=== PATIENT | male | born 1940 | race African-American/Black ===

== ENCOUNTER → 2017-07-15 | Outpatient (CLI) | payer MEDICARE ==
--- NOTE | 2017-07-15 17:59 | RADIOLOGY REPORT (SQ) ---
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 Yes Was the patient offered tobacco cessation counseling? Yes Was the patient engaged in shared decision making for this test? No Does the patient have signs or symptoms of Lung Cancer? No Is the patient a smoker? Yes How many packs per year? 730 How many years since quitting smoking? Not applicable Patients age: 76 COMPARISON: None. TECHNIQUE: Low Dose CT scan performed of the chest without intravenous contrast for purposes of scre ening for lung cancer. Images reviewed with lung, soft tissue and bone windows. Reconstructed coron al and sagittal MPR images reviewed. All images stored on PACS. All CT scanners at this facility use dose modulation, iterative reconstruction, and/or weight based d osing when appropriate to reduce radiation dose to as low as reasonably achievable (ALARA). [facility]: Dose Right [facility]: CareDose [facility]: Dose Right [facility]: Teradose 4D [facility]: [employer] RADIATION DOSE: CT Rad equipment meets quality standard of care and radiation dose reduction techniq ues were employed. CTDIvol: 2.1 mGy. DLP: 85 mGy-cm. mGy. . LIMITATIONS: No technical limitations. FINDINGS: LUNG NODULES: No worrisome lung nodules are present. There is bandlike scarring in the p eriphery of the right upper lobe near the major fissure, in the medial aspect of the lingula and righ t middle lobe. REMAINING LUNGS AND PLEURA: No pleural effusions or calcifications. No pneumothorax. Extensive changes of obstructive lung disease. HILAR AND MEDIASTINAL STRUCTURES: No identified masses. No abnormal nodes. HEART AND VASCULAR STRUCTURES: No aortic aneurysm. No pericardial effusion. No cardiac devices. CORONARY ARTERY CALCIFICATIONS: Mild to moderate calcifications. UPPER ABDOMEN, THYROID, BONES, OTHER SOFT TISSUES: Post left nephrectomy. IMPRESSION: BENIGN FINDINGS IN THE LUNGS. OTHER FINDINGS ABOVE. LUNGRADS: LUNGRADS: 2 BENIGN APPEARANCE OR BEHAVIOR. NODULES WITH A VERY LOW LIKELIHOOD OF BECOMING A CLINICALLY ACTIVE CANCER DUE TO SIZE OR LACK OF GROWTH. MODIFIER: NONE. RECOMMENDATION: Continue annual screening with LDCT in 12 months. COMMENT: CRITERIA: Solid nodule(s): < 6 mm; new < 4 mm. Part solid nodule(s): < 6 mm total diameter on baseline screening. Non solid nodule(s) (GGN): < 20 mm OR ? 20 and unchanged or slowly growing. Category 3 or 4 modules unchanged for ? 3 months. TECHNICAL DOCUMENTATION: JOB ID: [id number] Quality ID # [id number]: Final reports with documentation of one or more dose reduction techniques (e.g., Au tomated exposure control, adjustment of the mA and/or kV according to patient size, use of iterative reconstruction technique) 2010 [facility] Radiology Reading location - IP/workstation name: [email or web address]
== END ==
LOC: RAD 15:26
PROVIDERS: ATTEND Internal Medicine
DX: Z12.2 Encounter for screening for malignant neoplasm of respiratory organs (principal); F17.218 Nicotine dependence, cigarettes, with other nicotine-induced disorders; J44.9 Chronic obstructive pulmonary disease, unspecified
CPT/HCPCS: G0297

== ENCOUNTER 2017-08-28 12:22 | Inpatient (IN) | payer MEDICARE ==
[2017-08-28 14:54] LABS: ARTERIAL BLOOD BASE EXCESS -0.8 mmol/L; ARTERIAL BLOOD H2CO3 1.13 mmol/L (1.05-1.35); ARTERIAL BLOOD HCO3 23.5 mmol/L (20-26); ARTERIAL BLOOD O2 SATURATION 94.5 % (94-98); ARTERIAL BLOOD PCO2 37.5 mmHg (35-45); ARTERIAL BLOOD PH 7.41 (7.35-7.45); ARTERIAL BLOOD PO2 70.8 mmHg (80-100); ARTERIAL BLOOD TOTAL CO2 24.6 mmol/L (23-27)
[2017-08-28 14:55] LABS: ARTERIAL BLOOD FIO2 21%
[2017-08-28 15:09] LABS: HEMATOCRIT 40.9 % (37.9-51.0); HEMOGLOBIN 13.1 g/dL (13.5-17.0); MEAN CORPUSCULAR HEMOGLOBIN 26.9 pg (27.0-33.4); MEAN CORPUSCULAR HGB CONC 32.1 g/dL (32.0-36.0); MEAN CORPUSCULAR VOLUME 84 fl (80-97); PLATELET COUNT 128 10^3/uL (150-450); RED BLOOD COUNT 4.88 10^6/uL (4.35-5.55); RED CELL DISTRIBUTION WIDTH 15.3 % (11.5-14.0); WHITE BLOOD COUNT 5.5 10^3/uL (4.0-10.5)
[2017-08-28 15:35] LABS: ALANINE AMINOTRANSFERASE 21 U/L (21-72); ALBUMIN 3.8 g/dL (3.5-5.0); ALKALINE PHOSPHATASE 82 U/L (38-126); ANION GAP 11 (5-19); ASPARTATE AMINO TRANSFERASE 17 U/L (17-59); BILIRUBIN,DIRECT 0.3 mg/dL (0.0-0.4); BILIRUBIN,TOTAL 0.5 mg/dL (0.2-1.3); BLOOD UREA NITROGEN 20 mg/dL (7-20); CALCIUM 10.4 mg/dL (8.4-10.2); CARBON DIOXIDE 30 mmol/L (22-30); CHLORIDE 103 mmol/L (98-107); CREATINE KINASE 26 U/L (55-170); GLUCOSE 114 mg/dL (75-110); POTASSIUM 4.3 mmol/L (3.6-5.0)
[2017-08-28 15:45] LABS: CREATINE KINASE MB 0.26 ng/mL (<4.55)
[2017-08-28 15:46] LABS: TROPONIN I < 0.012 ng/mL
[2017-08-28] MEDS: NORMAL SALINE 1000 ML 1,000 ML IV PRN (16:07)
--- NOTE | 2017-08-28 16:09 | RADIOLOGY REPORT (SQ) ---
EXAM DESCRIPTION: CHEST 2 VIEWS COMPLETED DATE/TIME: 08/28/2017 3:27 pm REASON FOR STUDY: resp failure COMPARISON: 10/28/2014 EXAM PARAMETERS: NUMBER OF VIEWS: two views TECHNIQUE: Digital Frontal and Lateral radiographic views of the chest acquired. RADIATION DOSE: NA LIMITATIONS: none FINDINGS: LUNGS AND PLEURA: There is ill-defined opacification posteriorly and inferiorly on the lat eral view. No infiltrate is appreciated on the anterior view. MEDIASTINUM AND HILAR STRUCTURES: No masses or contour abnormalities. HEART AND VASCULAR STRUCTURES: Heart normal size. No evidence for failure. BONES: No acute findings. HARDWARE: None in the chest. OTHER: No other significant finding. IMPRESSION: Cannot entirely exclude a lower lobe infiltrate although this is not appreciated on the PA image. TECHNICAL DOCUMENTATION: JOB ID: [id number] [employer]- All Rights Reserved Reading location - IP/workstation name: [email or web address]
--- NOTE | 2017-08-28 17:16 | RADIOLOGY REPORT (SQ) ---
EXAM DESCRIPTION: CT CHEST WITH COMPLETED DATE/TIME: 08/28/2017 5:00 pm REASON FOR STUDY: suspect pneumonia/neoplasm COMPARISON: CT lung cancer screening 07/15/2017 CT chest 10/17/2015, 03/15/2014, 10/24/2012, 01/17/2012 Two-view chest films 08/28/2017 TECHNIQUE: CT scan of the chest performed using helical scanning technique with dynamic intravenous contrast injection. Images reviewed with lung, soft tissue and bone windows. Reconstructed coronal and sagittal MPR images reviewed. All images stored on PACS. All CT scanners at this facility use dose modulation, iterative reconstruction, and/or weight based d osing when appropriate to reduce radiation dose to as low as reasonably achievable (ALARA). [facility]: Dose Right [facility]: CareDose [facility]: Dose Right [facility]: Teradose 4D [facility]: [employer] CONTRAST TYPE AND DOSE: contrast/concentration: Isovue 370.00 mg/ml; Total Contrast Delivered: 80.0 ml; Total Saline Delivered: 53.1 ml RENAL FUNCTION: Creatinine 1.2 RADIATION DOSE: CT Rad equipment meets quality standard of care and radiation dose reduction techniq ues were employed. CTDIvol: 7.5 mGy. DLP: 292 mGy-cm. . LIMITATIONS: None. FINDINGS: LUNGS AND PLEURA: Minimal airspace disease in the posterior right lower lobe new compared to previous exams. Lungs are hyperinflated and hyperlucent from advanced obstructive lung disease. No pleural effusion. No pneumothorax. Airways are patent. HILAR AND MEDIASTINAL STRUCTURES: No identified masses or abnormal nodes. HEART AND VASCULAR STRUCTURES: No aneurysm or dissection. No central pulmonary emboli. No pericardi al effusion. Calcified coronary arteries HARDWARE: None in the chest. UPPER ABDOMEN: Post left nephrectomy. Stable 1 cm nodule right adrenal gland, unchanged from 2012 THYROID AND OTHER SOFT TISSUES: No masses. No adenopathy. BONES: No significant finding. OTHER: No other significant finding. IMPRESSION: Minimal airspace disease posterior right lower lobe. TECHNICAL DOCUMENTATION: JOB ID: [id number] Quality ID # [id number]: Final reports with documentation of one or more dose reduction techniques (e.g., Au tomated exposure control, adjustment of the mA and/or kV according to patient size, use of iterative reconstruction technique) 2010 [employer]- All Rights Reserved Reading location - IP/workstation name: [email or web address]
--- NOTE | 2017-08-28 18:03 | PDOC H&P ---
History of Present Illness Admission Date/PCP: 08/28/17 12:22 STEVE DOTY MD History of Present Illness: YELENA SANCHEZ is a 76 year old male, He came to the office today with his for evaluation of low blood pressure and hypoxemia on pulse oximetry. Patient's said the last 3 days he has not been acting himself, is coughing is not particularly engaging, in the office he would not answer questions which is out of character. The gait was very slow, he was admitted directly from the office to the hospital for further evaluation. Chest x-ray suggests pneumonia, CT chest was done there was no pneumonia it showed advanced COPDHe was initially brought in for observation after further evaluation it was found to have a slight right facial droop, intracranial event was suspected, CVA versus a space occupying lesion in the brain MRI brain was ordered it confirmed a left thalamic stroke Past Medical History Cardiac Medical History: Reports: DVT, Hypertension, Peripheral Vascular Disease , Pulmonary Embolism Pulmonary Medical History: Reports: Bronchitis, Chronic Obstructive Pulmonary Disease (COPD), Pneumonia, Respiratory Failure Malignancy Medical History: Reports: Renal (Kidney) Cancer Musculoskeltal Medical History: Reports: Arthritis Psychiatric Medical History: Reports: Depression Hematology: Denies: Anemia Past Surgical History Past Surgical History: Reports: Vascular Surgery Denies: Pacemaker Social History Smoking Status: Current Every Day Smoker Cigarettes Packs Per Day: 0.5 Number of Years Smokin Last Time Smoked: 08/27/2017 Frequency of Alcohol Use: None Hx Recreational Drug Use: No Drugs: None Hx Prescription Drug Abuse: No Family History Family History: Reviewed & Not Pertinent Parental Family History Reviewed: Yes Children Family History Reviewed: Yes Sibling(s) Family History Reviewed.: Yes Medication/Allergy Home Medications: Atorvastatin Calcium [Lipitor 20 mg Tablet] 20 mg PO QHS 08/28/17 Finasteride [Proscar] 5 mg PO DAILY 08/28/17 Metoprolol Succinate [Toprol Xl 25 mg Tab.sr] 25 mg PO DAILY 08/28/17 Valsartan/Hydrochlorothiazide [Diovan Hct 320-25 mg Tablet] 1 tab PO DAILY 08/28 Allergies/Adverse Reactions: No Known Allergies Allergy (Verified 09/13/14 06:10) Review of Systems ROS unobtainable: Other - Not answering questions except for saying he does not feel well Physical Exam Vital Signs: Temp Pulse Resp BP Pulse Ox 97.9 F 65 20 91/63 L 94 08/28/17 15:36 08/28/17 15:36 08/28/17 15:36 08/28/17 15:36 08/28/17 15:36 Intake & Output 08/27/17 08/28/17 08/29/17 06:59 06:59 06:59 Intake Total 222 Balance 222 Weight 73.5 kg General appearance: PRESENT: no acute distress, well-developed, well-nourished Head exam: PRESENT: atraumatic, normocephalic Eye exam: PRESENT: conjunctiva pink, EOMI, PERRLA Ear exam: PRESENT: normal external ear exam Mouth exam: PRESENT: moist, tongue midline Neck exam: PRESENT: full ROM Respiratory exam: PRESENT: clear to auscultation sariah Cardiovascular exam: PRESENT: RRR, +S1, +S2 Pulses: PRESENT: normal dorsalis pedis pul, +2 pedal pulses bilateral Vascular exam: PRESENT: normal capillary refill GI/Abdominal exam: PRESENT: normal bowel sounds, soft Rectal exam: PRESENT: deferred Neurological exam: PRESENT: alert, motor sensory deficit - Right facial droop Skin exam: PRESENT: dry, intact, warm Results Laboratory Results: 08/28/17 14:55 08/28/17 14:55 08/28/17 08/28/17 08/28/17 14:32 14:55 14:55 WBC 5.5 RBC 4.88 Hgb 13.1 L Hct 40.9 MCV 84 MCH 26.9 L MCHC 32.1 RDW 15.3 H Plt Count 128 L Carbonic Acid 1.13 HCO3/H2CO3 Ratio 20:1 ABG pH 7.41 ABG pCO2 37.5 ABG pO2 70.8 L ABG HCO3 23.5 ABG O2 Saturation 94.5 ABG Base Excess -0.8 FiO2 21% Sodium 144.0 Potassium 4.3 Chloride 103 Carbon Dioxide 30 Anion Gap 11 BUN 20 Creatinine 1.23 Est GFR ( Amer) > 60 Est GFR (Non-Af Amer) 58 L Glucose 114 H Calcium 10.4 H Total Bilirubin 0.5 AST 17 ALT 21 Alkaline Phosphatase 82 Total Protein 7.0 Albumin 3.8 08/28/17 08/28/17 14:55 14:55 Creatine Kinase 26 L CK-MB (CK-2) 0.26 Troponin I < 0.012 Impressions: Chest CT 08/28/17 00:00 IMPRESSION: Minimal airspace disease posterior right lower lobe. Chest X-Ray 08/28/17 14:19 IMPRESSION: Cannot entirely exclude a lower lobe infiltrate although this is not appreciated on the PA image. 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
[2017-08-28 19:32] LABS: APPEARANCE,URINE CLEAR; BILIRUBIN,URINE NEGATIVE (NEGATIVE); COLOR,URINE YELLOW; GLUCOSE, URINE NEGATIVE (NEGATIVE); KETONES,URINE NEGATIVE (NEGATIVE); LEUKOCYTE ESTERASE,URINE NEGATIVE (NEGATIVE); NITRITE,URINE NEGATIVE (NEGATIVE); PROTEIN,URINE NEGATIVE (NEGATIVE); URINE SPECIFIC GRAVITY 1.043
[2017-08-28] MEDS ORDERED: FINASTERIDE 5 MG TABLET PO ONE (21:00)
[2017-08-28] MEDS: ATORVASTATIN CALCIUM 20 MG TABLET PO SCH (21:33)
[2017-08-28] MEDS: APIXABAN 2.5 MG TABLET PO SCH (21:33)
[2017-08-28 23:12] LABS: TROPONIN I < 0.012 ng/mL
--- NOTE | 2017-08-28 23:22 | EKG REPORT ---
SEVERITY:- ABNORMAL ECG - SINUS RHYTHM FIRST DEGREE AV BLOCK RBBB AND LPFB : Confirmed by: Breonna Villavicencio 28-Aug-2017 23:21:57
[2017-08-29] MEDS: NORMAL SALINE 1000 ML 1,000 ML IV PRN ×2 (00:52→10:15)
[2017-08-29 08:26] LABS: CREATINE KINASE MB 0.39 ng/mL (<4.55)
[2017-08-29 08:29] LABS: TROPONIN I < 0.012 ng/mL
[2017-08-29] MEDS: FINASTERIDE 5 MG TABLET PO SCH (09:33)
[2017-08-29] MEDS: APIXABAN 2.5 MG TABLET PO SCH ×2 (09:34→23:29)
--- NOTE | 2017-08-29 21:46 | RADIOLOGY REPORT (SQ) ---
EXAM DESCRIPTION: MRI HEAD COMBO COMPLETED DATE/TIME: 08/29/2017 8:44 pm REASON FOR STUDY: ? brain mass ? CVA COMPARISON: CT from 08/21/2017. TECHNIQUE: Multiplanar imaging includes noncontrasted T1, T2, FLAIR, diffusion with ADC map and post gadolinium contrast T1 sequences. Images stored on PACS. CONTRAST TYPE AND DOSE: 15 mL Multihance. RENAL FUNCTION: GFR 57 LIMITATIONS: None. FINDINGS: ANATOMY: No anomalies. Normal vascular flow voids. Pituitary fossa normal. CSF SPACES: Slightly prominent, related to parenchymal atrophy. No extra-axial mass, fluid or hemorr linda evident. CEREBRUM: Best demonstrated on FLAIR and T2 sequences is moderate -marked bilateral patchy deep periv entricular white matter signal. Consistent with small vessel vasculopathy. No hemorrhage or mass or shift. POSTERIOR FOSSA: No signal alteration. No hemorrhage. No edema, masses, or mass effect. Internal venecia tory canals, cerebellopontine angles, mastoids normal. No enhancing lesions. No abnormal enhancement post contrast. DIFFUSION IMAGING: Restricted diffusion in the left thalamus. Consistent with recent infarct. Poten tial very subtle dorsal pontine 2nd area of restricted diffusion just to the left of midline. ORBITS: No masses. Globes normal. PARANASAL SINUSES: Patchy mucosal thickening left frontal and ethmoid air cells. Mucosal thickening and fluid in the sphenoid sinuses. OTHER: No other significant finding. IMPRESSION: 1. Small acute left thalamic and dorsal pontine infarcts. 2. Acute on chronic paranasa l sinus disease. 3. Otherwise, chronic changes of atrophy and small vessel disease. EVIDENCE OF ACUTE STROKE: YES. LEFT THALAMIC AND PONTINE ARTERIES. TECHNICAL DOCUMENTATION: JOB ID: [id number] [employer]- All Rights Reserved Reading location - IP/workstation name: [employer] [email or web address]
[2017-08-29 22:30] LABS: INTERNATIONAL RATION (INR) 1.03
[2017-08-29 22:31] LABS: PARTIAL THROMBOPLASTIN TIME 23.3 SEC (23.5-35.8)
[2017-08-29 23:21] LABS: APPEARANCE,URINE SLIGHTLY-CLOUDY; BILIRUBIN,URINE NEGATIVE (NEGATIVE); COLOR,URINE YELLOW; GLUCOSE, URINE NEGATIVE (NEGATIVE); KETONES,URINE NEGATIVE (NEGATIVE); LEUKOCYTE ESTERASE,URINE NEGATIVE (NEGATIVE); NITRITE,URINE NEGATIVE (NEGATIVE); PROTEIN,URINE NEGATIVE (NEGATIVE); URINE SPECIFIC GRAVITY 1.031
[2017-08-29] MEDS: ASPIRIN/DIPYRIDAMOLE 25-200 MG 1 CAP.SR CPMP.12HR PO SCH (23:28)
--- NOTE | 2017-08-29 23:30 | EKG REPORT ---
SEVERITY:- ABNORMAL ECG - SINUS RHYTHM FIRST DEGREE AV BLOCK RIGHT BUNDLE BRANCH BLOCK : Confirmed by: Breonna Villavicencio 29-Aug-2017 23:30:18
[2017-08-29] MEDS: ATORVASTATIN CALCIUM 20 MG TABLET PO SCH (23:31)
[2017-08-29] MEDS: ATORVASTATIN CALCIUM 80 MG TABLET PO SCH (23:31)
[2017-08-30] MEDS: NORMAL SALINE 1000 ML 1,000 ML IV PRN ×2 (02:30→12:25)
[2017-08-30 04:35] LABS: ABSOLUTE EOSINOPHILS # (AUTO) 0.2 10^3/uL (0.0-0.6); ABSOLUTE LYMPHOCYTES (AUTO) 1.1 10^3/uL (0.5-4.7); ABSOLUTE MONOCYTES (AUTO) 0.7 10^3/uL (0.1-1.4); ABSOLUTE NEUT (AUTO) 3.6 10^3/uL (1.7-8.2); BASOPHILS % (AUTO) 0.5 % (0-2); EOSINOPHILS % (AUTO) 4.4 % (0-6); HEMATOCRIT 36.1 % (37.9-51.0); HEMOGLOBIN 11.6 g/dL (13.5-17.0); LYMPHOCYTES % (AUTO) 19.8 % (13-45); MEAN CORPUSCULAR HEMOGLOBIN 26.8 pg (27.0-33.4); MEAN CORPUSCULAR HGB CONC 32.3 g/dL (32.0-36.0); MEAN CORPUSCULAR VOLUME 83 fl (80-97); MONOCYTES % (AUTO) 11.9 % (3-13); PLATELET COUNT 111 10^3/uL (150-450); RED BLOOD COUNT 4.35 10^6/uL (4.35-5.55); RED CELL DISTRIBUTION WIDTH 15.3 % (11.5-14.0); SEGMENTED NEUTROPHILS % (AUTO) 63.4 % (42-78); TOTAL CELLS COUNTED % (AUTO) 100 %; WHITE BLOOD COUNT 5.7 10^3/uL (4.0-10.5)
[2017-08-30 04:52] LABS: ALANINE AMINOTRANSFERASE 19 U/L (21-72); ALBUMIN 2.8 g/dL (3.5-5.0); ALKALINE PHOSPHATASE 68 U/L (38-126); ANION GAP 11 (5-19); ASPARTATE AMINO TRANSFERASE 16 U/L (17-59); BILIRUBIN,DIRECT 0.3 mg/dL (0.0-0.4); BILIRUBIN,TOTAL 0.4 mg/dL (0.2-1.3); BLOOD UREA NITROGEN 15 mg/dL (7-20); CALCIUM 9.2 mg/dL (8.4-10.2); CARBON DIOXIDE 23 mmol/L (22-30); CHLORIDE 111 mmol/L (98-107); CHOLESTEROL 62.15 mg/dL (0-200); CREATINE KINASE 34 U/L (55-170); GLUCOSE 93 mg/dL (75-110); POTASSIUM 3.7 mmol/L (3.6-5.0); SODIUM 144.5 mmol/L (137-145); TOTAL PROTEIN 5.6 g/dL (6.3-8.2); TRIGLYCERIDES 61 mg/dL (<150)
[2017-08-30 05:03] LABS: DIRECT LDL 31 mg/dL (<100)
[2017-08-30] MEDS: APIXABAN 2.5 MG TABLET PO SCH ×2 (09:30→21:58)
[2017-08-30] MEDS: FINASTERIDE 5 MG TABLET PO SCH (09:30)
[2017-08-30] MEDS: ASPIRIN/DIPYRIDAMOLE 25-200 MG 1 CAP.SR CPMP.12HR PO SCH ×2 (09:30→21:57)
--- NOTE | 2017-08-30 11:51 | RADIOLOGY REPORT (SQ) ---
EXAM DESCRIPTION: CAROTID DOPPLER COMPLETED DATE/TIME: 08/30/2017 11:38 am REASON FOR STUDY: cva I10 ESSENTIAL (PRIMARY) HYPERTENSION I63.011 CEREBRAL INFARCTION DUE TO THRO MBOSIS OF R MIKB AR I63.02 CEREBRAL INFARCTION DUE TO THROMBOSIS OF BASILAR CELINE COMPARISON: MRI brain 08/29/2017 TECHNIQUE: Grayscale ultrasound, Doppler velocity and spectra, and color Doppler images acquired of the extra-cranial carotid and vertebral arteries. Images stored on PACS. LIMITATIONS: None. FINDINGS: RIGHT CAROTID CCA Velocities: Within normal limits. ICA Velocities Peak systolic 0.59 m/s. End diastolic 0.14 m/s. Proximal ICA/CCA peak systolic ratio 0.9. Spectra normal. No significant plaque. LEFT CAROTID CCA Velocities: Within normal limits. ICA Velocities Peak systolic 0.47 m/s. End diastolic 0.13 m/s. Proximal ICA/CCA peak systolic ratio 1.3. Spectra normal. No significant plaque. VERTEBRAL ARTERIES: Antegrade flow. Normal waveforms. SUBCLAVIAN ARTERIES: Not evaluated OTHER: No other significant finding. IMPRESSION: NO HEMODYNAMICALLY SIGNIFICANT STENOSIS. COMMENT: Quality ID #[id number]: Velocity criteria are extrapolated from the diameter data as defined by t he Society of Radiologists in Ultrasound Consensus Conference. Radiology 2003: 229; 340-346. TECHNICAL DOCUMENTATION: JOB ID: [id number] [employer]- All Rights Reserved Reading location - IP/workstation name: [facility]
--- NOTE | 2017-08-30 17:17 | PDOC PROGRESS REPORT ---
Subjective Progress Note for:: 08/30/17 Subjective:: Patient was seen by the bedside, family in the room, he has left thalamic stroke , he looks better today compared to yesterday. Reason For Visit: LEFT THALAMIC CVA Physical Exam Vital Signs: Temp Pulse Resp BP Pulse Ox 97.8 F 72 18 116/79 100 08/30/17 16:03 08/30/17 16:03 08/30/17 16:03 08/30/17 16:03 08/30/17 16:03 Intake & Output 08/29/17 08/30/17 08/31/17 06:59 06:59 06:59 Intake Total 2242 1904 Output Total 200 200 Balance 2042 1704 Weight 72.8 kg 72.6 kg General appearance: PRESENT: no acute distress Eye exam: PRESENT: PERRLA Respiratory exam: PRESENT: clear to auscultation sariah Cardiovascular exam: PRESENT: +S1, +S2 GI/Abdominal exam: PRESENT: soft Neurological exam: PRESENT: alert, CN II-XII grossly intact Results Laboratory Results: 08/30/17 04:16 08/30/17 04:16 08/29/17 08/30/17 08/30/17 23:00 04:16 04:16 WBC 5.7 RBC 4.35 Hgb 11.6 L Hct 36.1 L MCV 83 MCH 26.8 L MCHC 32.3 RDW 15.3 H Plt Count 111 L Seg Neutrophils % 63.4 Lymphocytes % 19.8 Monocytes % 11.9 Eosinophils % 4.4 Basophils % 0.5 Absolute Neutrophils 3.6 Absolute Lymphocytes 1.1 Absolute Monocytes 0.7 Absolute Eosinophils 0.2 Absolute Basophils 0.0 Sodium 144.5 Potassium 3.7 Chloride 111 H Carbon Dioxide 23 Anion Gap 11 BUN 15 Creatinine 1.00 Est GFR ( Amer) > 60 Est GFR (Non-Af Amer) > 60 Glucose 93 Calcium 9.2 Total Bilirubin 0.4 AST 16 L ALT 19 L Alkaline Phosphatase 68 Total Protein 5.6 L Albumin 2.8 L Triglycerides 61 Cholesterol 62.15 LDL Cholesterol Direct 31 VLDL Cholesterol 12.0 HDL Cholesterol 21 L Urine Color YELLOW Urine Appearance SLIGHTLY-CLOUDY Urine pH 5.0 Ur Specific [place] 1.031 Urine Protein NEGATIVE Urine Glucose (UA) NEGATIVE Urine Ketones NEGATIVE Urine Blood NEGATIVE Urine Nitrite NEGATIVE Ur Leukocyte Esterase NEGATIVE Urine WBC (Auto) 1 Urine RBC (Auto) 0 08/28/17 18:02 Clean Catch Midstream Urine Culture - Final Citrobacter Koseri 08/28/17 08/28/17 08/28/17 14:55 14:55 22:25 Creatine Kinase 26 L 23 L CK-MB (CK-2) 0.26 Troponin I < 0.012 08/28/17 08/29/17 08/29/17 22:25 06:54 06:54 Creatine Kinase 25 L CK-MB (CK-2) 0.30 0.39 Troponin I < 0.012 < 0.012 08/29/17 08/29/17 08/30/17 22:09 22:09 04:16 Creatine Kinase 38 L 34 L CK-MB (CK-2) Troponin I < 0.012 08/30/17 08/30/17 08/30/17 04:16 10:29 10:29 Creatine Kinase 36 L CK-MB (CK-2) Troponin I < 0.012 < 0.012 Impressions: Chest CT 08/28/17 00:00 IMPRESSION: Minimal airspace disease posterior right lower lobe. Chest X-Ray 08/28/17 14:19 IMPRESSION: Cannot entirely exclude a lower lobe infiltrate although this is not appreciated on the PA image. Head MRI 08/29/17 00:00 IMPRESSION: 1. Small acute left thalamic and dorsal pontine infarcts. 2. Acute on chronic paranasal sinus disease. 3. Otherwise, chronic changes of atrophy and small vessel disease. EVIDENCE OF ACUTE STROKE: YES. LEFT THALAMIC AND PONTINE ARTERIES. Carotid Doppler Study 08/30/17 00:00 IMPRESSION: NO HEMODYNAMICALLY SIGNIFICANT STENOSIS. 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
--- NOTE | 2017-08-30 20:11 | XCELERA REPORT ---
[address] [address] Transthoracic Echocardiogram Report Name: YELENA SANCHEZ Age: 77 yrs Gender: Male : 1940 Patient Status: Inpatient Patient Location: [address] [place] [address] Study Date: 08/30/2017 09:47 AM Height: 67 in Weight: 160 lb BSA: 1.8 m2 Procedure: A complete two-dimensional transthoracic echocardiogram was performed (2D, M-mode, spectral and color flow Doppler). The study was technically adequate with some images being suboptimal in quality. Reason For Study: cva Ordering Physician: STEVE DOTY Performed By: Michelle Moraes Interpretation Summary Left ventricular systolic function is low normal. There is borderline concentric left ventricular hypertrophy. The left ventricle is grossly normal size. Doppler measurements suggest pseudonormalized left ventricular relaxation, which is associated with grade II/IV or mild to moderate diastolic dysfunction Wall motion cannot be accurately commented on, but no definite regional wall motion abnormalities noted. The right ventricular systolic function is normal. The right ventricle is borderline dilated. The right atrium is normal in size The left atrial size is normal. There is a trace amount of mitral regurgitation There is no mitral valve stenosis. No aortic regurgitation is present. There is no aortic valve stenosis No tricuspid regurgitation. There is no tricuspid stenosis. The aortic root is not well visualized. The inferior vena cava was not well visualized There is no pericardial effusion. No definite cardiac source of CVA/TIA noted on this particular trans- thoracic study. Consider RUBINA if clinically indicated. May consider mobile cardiac telemetry monitoring (MCT) for ruling out transient AFIB. MMode/2D Measurements & Calculations RVDd: 3.1 cm LVIDd: 4.0 cm FS: 38.1 % Ao root diam: 3.5 cm IVSd: 0.88 cm LVIDs: 2.5 cm EDV(Teich): 70.5 ml LVPWd: 0.88 cm ESV(Teich): 21.9 ml Ao root area: 9.7 cm2 EF(Teich): 68.9 % LA dimension: 3.0 cm Doppler Measurements & Calculations MV E max lucy: MV P1/2t max lucy: Ao V2 max: LV V1 max P.8 cm/sec 89.3 cm/sec 143.6 cm/sec 4.3 mmHg MV A max lucy: MV P1/2t: 61.9 msec Ao max PG: LV V1 max: 72.1 cm/sec 8.2 mmHg 103.2 cm/sec MV E/A: 1.2 MVA(P1/2t): 3.6 cm2 MV dec slope: 423.0 cm/sec2 MV dec time: 0.21 sec PA V2 max: 62.4 cm/sec PA max P.6 mmHg Left Ventricle The left ventricle is grossly normal size. There is borderline concentric left ventricular hypertrophy. Left ventricular systolic function is low normal. Doppler measurements suggest pseudonormalized left ventricular relaxation, which is associated with grade II/IV or mild to moderate diastolic dysfunction. Wall motion cannot be accurately commented on, but no definite regional wall motion abnormalities noted. Right Ventricle The right ventricle is borderline dilated. There is normal right ventricular wall thickness. The right ventricular systolic function is normal. Atria The right atrium is normal in size. The left atrial size is normal. Interarterial septum not well visualized and not well dopplered. Cannot comment on ASD/PFO presence. Mitral Valve There is mild mitral leaflet calcification. There is no mitral valve stenosis. There is a trace amount of mitral regurgitation. Aortic Valve The aortic valve is not well visualized secondary to technical limitations. There is no aortic valve stenosis. No aortic regurgitation is present. Tricuspid Valve The tricuspid valve is not well visualized, but is grossly normal. There is no tricuspid stenosis. No tricuspid regurgitation. Pulmonic Valve The pulmonic valve is not well visualized. Great Vessels The aortic root is not well visualized. The inferior vena cava was not well visualized. Effusions There is no pericardial effusion. Incidental Findings No definite cardiac source of CVA/TIA noted on this particular trans- thoracic study. Consider RUBINA if clinically indicated. May consider mobile cardiac telemetry monitoring (MCT) for ruling out transient AFIB. : STEVE DOTY > Breonna Villavicencio
[2017-08-30] MEDS: ATORVASTATIN CALCIUM 80 MG TABLET PO SCH (21:58)
[2017-08-30] MEDS: ATORVASTATIN CALCIUM 20 MG TABLET PO SCH (21:58)
[2017-08-31 05:39] LABS: ABSOLUTE EOSINOPHILS # (AUTO) 0.3 10^3/uL (0.0-0.6); ABSOLUTE LYMPHOCYTES (AUTO) 1.1 10^3/uL (0.5-4.7); ABSOLUTE MONOCYTES (AUTO) 0.5 10^3/uL (0.1-1.4); ABSOLUTE NEUT (AUTO) 3.5 10^3/uL (1.7-8.2); BASOPHILS % (AUTO) 0.7 % (0-2); EOSINOPHILS % (AUTO) 5.6 % (0-6); HEMATOCRIT 34.4 % (37.9-51.0); HEMOGLOBIN 11.2 g/dL (13.5-17.0); MEAN CORPUSCULAR HGB CONC 32.7 g/dL (32.0-36.0); MEAN CORPUSCULAR VOLUME 83 fl (80-97); PLATELET COUNT 119 10^3/uL (150-450); RED BLOOD COUNT 4.16 10^6/uL (4.35-5.55); RED CELL DISTRIBUTION WIDTH 15.4 % (11.5-14.0); SEGMENTED NEUTROPHILS % (AUTO) 63.7 % (42-78); TOTAL CELLS COUNTED % (AUTO) 100 %; WHITE BLOOD COUNT 5.4 10^3/uL (4.0-10.5)
[2017-08-31 06:05] LABS: ALANINE AMINOTRANSFERASE 23 U/L (21-72); ALBUMIN 2.6 g/dL (3.5-5.0); ALKALINE PHOSPHATASE 64 U/L (38-126); ANION GAP 10 (5-19); ASPARTATE AMINO TRANSFERASE 15 U/L (17-59); BILIRUBIN,DIRECT 0.2 mg/dL (0.0-0.4); BILIRUBIN,TOTAL 0.2 mg/dL (0.2-1.3); BLOOD UREA NITROGEN 16 mg/dL (7-20); CALCIUM 9.3 mg/dL (8.4-10.2); CARBON DIOXIDE 24 mmol/L (22-30); CHLORIDE 111 mmol/L (98-107); GLUCOSE 105 mg/dL (75-110); POTASSIUM 3.9 mmol/L (3.6-5.0); SODIUM 145.3 mmol/L (137-145); TOTAL PROTEIN 5.3 g/dL (6.3-8.2)
[2017-08-31] MEDS: APIXABAN 2.5 MG TABLET PO SCH ×2 (10:07→21:34)
[2017-08-31] MEDS: FINASTERIDE 5 MG TABLET PO SCH (10:07)
[2017-08-31] MEDS: ASPIRIN/DIPYRIDAMOLE 25-200 MG 1 CAP.SR CPMP.12HR PO SCH ×2 (10:07→21:33)
[2017-08-31] MEDS ORDERED: ACETAMINOPHEN 325 MG TABLET PO PRN (11:35)
[2017-08-31] MEDS: LEVOFLOXACIN 750 MG TABLET PO SCH (13:50)
--- NOTE | 2017-08-31 15:53 | PDOC PROGRESS REPORT ---
Subjective Progress Note for:: 08/31/17 Subjective:: Family at bedside. he denied any chest pain or difficulty with breathing. Thee is noted coughing and chest congestion. Difficulty with expectoration. No nausea , vomiting or abdominal pain. Reason For Visit: LEFT THALAMIC CVA Physical Exam Vital Signs: Temp Pulse Resp BP Pulse Ox 97.7 F 70 18 131/73 H 100 08/31/17 11:22 08/31/17 12:00 08/31/17 12:00 08/31/17 12:00 08/31/17 12:00 Intake & Output 08/30/17 08/31/17 09/01/17 06:59 06:59 06:59 Intake Total 1904 1148 350 Output Total 200 700 300 Balance 1704 448 50 Weight 72.6 kg 74.1 kg General appearance: PRESENT: no acute distress, well-developed, well-nourished Head exam: PRESENT: atraumatic, normocephalic Teeth exam: PRESENT: poor dentation Throat exam: ABSENT: post pharyngeal erythema, tonsillar erythema, tonsillar exudate, tonsillogmegaly, other Respiratory exam: PRESENT: clear to auscultation sariah, decreased breath sounds - at lung bases Cardiovascular exam: PRESENT: RRR. ABSENT: diastolic murmur, rubs, systolic murmur Vascular exam: PRESENT: normal capillary refill. ABSENT: pallor GI/Abdominal exam: PRESENT: normal bowel sounds, soft Extremities exam: ABSENT: pedal edema Musculoskeletal exam: PRESENT: deformity - multiple joints with features of arthritis Neurological exam: PRESENT: alert, awake, oriented to person, oriented to place , oriented to time, oriented to situation, CN II-XII grossly intact. ABSENT: motor sensory deficit Skin exam: PRESENT: dry, warm Results Laboratory Results: 08/31/17 05:00 08/31/17 05:00 08/31/17 08/31/17 05:00 05:00 WBC 5.4 RBC 4.16 L Hgb 11.2 L Hct 34.4 L MCV 83 MCH 27.0 MCHC 32.7 RDW 15.4 H Plt Count 119 L Seg Neutrophils % 63.7 Lymphocytes % 20.0 Monocytes % 10.0 Eosinophils % 5.6 Basophils % 0.7 Absolute Neutrophils 3.5 Absolute Lymphocytes 1.1 Absolute Monocytes 0.5 Absolute Eosinophils 0.3 Absolute Basophils 0.0 Sodium 145.3 H Potassium 3.9 Chloride 111 H Carbon Dioxide 24 Anion Gap 10 BUN 16 Creatinine 1.07 Est GFR ( Amer) > 60 Est GFR (Non-Af Amer) > 60 Glucose 105 Calcium 9.3 Total Bilirubin 0.2 AST 15 L ALT 23 Alkaline Phosphatase 64 Total Protein 5.3 L Albumin 2.6 L 08/28/17 08/28/17 08/28/17 14:55 14:55 22:25 Creatine Kinase 26 L 23 L CK-MB (CK-2) 0.26 Troponin I < 0.012 08/28/17 08/29/17 08/29/17 22:25 06:54 06:54 Creatine Kinase 25 L CK-MB (CK-2) 0.30 0.39 Troponin I < 0.012 < 0.012 08/29/17 08/29/17 08/30/17 22:09 22:09 04:16 Creatine Kinase 38 L 34 L CK-MB (CK-2) Troponin I < 0.012 08/30/17 08/30/17 08/30/17 04:16 10:29 10:29 Creatine Kinase 36 L CK-MB (CK-2) Troponin I < 0.012 < 0.012 Impressions: Chest CT 08/28/17 00:00 IMPRESSION: Minimal airspace disease posterior right lower lobe. Chest X-Ray 08/28/17 14:19 IMPRESSION: Cannot entirely exclude a lower lobe infiltrate although this is not appreciated on the PA image. Head MRI 08/29/17 00:00 IMPRESSION: 1. Small acute left thalamic and dorsal pontine infarcts. 2. Acute on chronic paranasal sinus disease. 3. Otherwise, chronic changes of atrophy and small vessel disease. EVIDENCE OF ACUTE STROKE: YES. LEFT THALAMIC AND PONTINE ARTERIES. Carotid Doppler Study 08/30/17 00:00 IMPRESSION: NO HEMODYNAMICALLY SIGNIFICANT STENOSIS. 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 Request PT service for mobilization. (2) Infection due to Citrobacter Is this a current diagnosis for this admission?: Yes Plan: Continue on IV Levofloxacin coverage. (3) Gram-positive cocci in clusters Is this a current diagnosis for this admission?: Yes Plan: Continue on IV Levofloxacin coverage. Follow up on blood culture findings regarding organism identification and sensitivity. (4) Chronic obstructive pulmonary disease Qualifiers: COPD type: unspecified COPD Qualified Code(s): J44.9 - Chronic obstructive pulmonary disease, unspecified Is this a current diagnosis for this admission?: Yes Plan: Maintain on all current medication management. (5) Peripheral vascular disease Is this a current diagnosis for this admission?: Yes Plan: Continue current medication management. - Time Time Spent with patient: 25-34 minutes Medications reviewed and adjusted accordingly: Yes Anticipated discharge: Home with Homehealth Within: Other - Inpatient Certification Based on my medical assessment, after consideration of the patient's comorbidities, presenting symptoms, or acuity I expect that the services needed warrant INPATIENT care.: Yes I certify that my determination is in accordance with my understanding of Medicare's requirements for reasonable and necessary INPATIENT services [42 CFR 412.3e].: Yes Medical Necessity: Need Close Monitoring Due to Risk of Patient Decompensation, Need For Continuous Telemetry Monitoring, Risk of Complication if Not Cared For in Hospital Post 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
[2017-08-31] MEDS: ATORVASTATIN CALCIUM 80 MG TABLET PO SCH (21:33)
[2017-08-31] MEDS: ATORVASTATIN CALCIUM 20 MG TABLET PO SCH (21:34)
[2017-09-01 04:44] LABS: ABSOLUTE EOSINOPHILS # (AUTO) 0.3 10^3/uL (0.0-0.6); ABSOLUTE LYMPHOCYTES (AUTO) 1.1 10^3/uL (0.5-4.7); ABSOLUTE MONOCYTES (AUTO) 0.6 10^3/uL (0.1-1.4); ABSOLUTE NEUT (AUTO) 3.7 10^3/uL (1.7-8.2); BASOPHILS % (AUTO) 0.4 % (0-2); EOSINOPHILS % (AUTO) 4.6 % (0-6); HEMATOCRIT 33.7 % (37.9-51.0); LYMPHOCYTES % (AUTO) 18.8 % (13-45); MEAN CORPUSCULAR HEMOGLOBIN 26.8 pg (27.0-33.4); MEAN CORPUSCULAR HGB CONC 32.5 g/dL (32.0-36.0); MEAN CORPUSCULAR VOLUME 82 fl (80-97); MONOCYTES % (AUTO) 10.3 % (3-13); PLATELET COUNT 100 10^3/uL (150-450); RED BLOOD COUNT 4.09 10^6/uL (4.35-5.55); RED CELL DISTRIBUTION WIDTH 15.7 % (11.5-14.0); SEGMENTED NEUTROPHILS % (AUTO) 65.9 % (42-78); TOTAL CELLS COUNTED % (AUTO) 100 %; WHITE BLOOD COUNT 5.6 10^3/uL (4.0-10.5)
[2017-09-01 05:04] LABS: ALANINE AMINOTRANSFERASE 21 U/L (21-72); ALBUMIN 2.7 g/dL (3.5-5.0); ALKALINE PHOSPHATASE 60 U/L (38-126); ANION GAP 8 (5-19); ASPARTATE AMINO TRANSFERASE 15 U/L (17-59); BILIRUBIN,DIRECT 0.2 mg/dL (0.0-0.4); BILIRUBIN,TOTAL 0.3 mg/dL (0.2-1.3); BLOOD UREA NITROGEN 17 mg/dL (7-20); CALCIUM 9.2 mg/dL (8.4-10.2); CARBON DIOXIDE 23 mmol/L (22-30); CHLORIDE 111 mmol/L (98-107); GLUCOSE 93 mg/dL (75-110); POTASSIUM 3.8 mmol/L (3.6-5.0); SODIUM 142.4 mmol/L (137-145); TOTAL PROTEIN 5.4 g/dL (6.3-8.2)
[2017-09-01] MEDS: LEVOFLOXACIN 750 MG TABLET PO SCH (09:54)
[2017-09-01] MEDS: FINASTERIDE 5 MG TABLET PO SCH (09:54)
[2017-09-01] MEDS: APIXABAN 2.5 MG TABLET PO SCH ×2 (09:55→21:52)
[2017-09-01] MEDS: ASPIRIN/DIPYRIDAMOLE 25-200 MG 1 CAP.SR CPMP.12HR PO SCH ×2 (09:55→21:52)
--- NOTE | 2017-09-01 15:35 | PDOC PROGRESS REPORT ---
Subjective Progress Note for:: 09/01/17 Subjective:: Patient denied any chest pain or difficulty with breathing. No very compliant with Flutter and Incentive spirometry usage. Less coughing without expectoration. No nausea, vomiting or abdominal pain. Reason For Visit: LEFT THALAMIC CVA Physical Exam Vital Signs: Temp Pulse Resp BP Pulse Ox 98.0 F 77 16 125/76 100 09/01/17 11:07 09/01/17 11:07 09/01/17 11:07 09/01/17 11:07 09/01/17 11:07 Intake & Output 08/31/17 09/01/17 09/02/17 06:59 06:59 06:59 Intake Total 1148 1065 260 Output Total 700 750 300 Balance 448 315 -40 Weight 74.1 kg 75.7 kg Physical Exam: General appearance: PRESENT: no acute distress, well-developed, well-nourished Head exam: PRESENT: atraumatic, normocephalic Teeth exam: PRESENT: poor dentation Respiratory exam: PRESENT: clear to auscultation sariah, decreased breath sounds - at lung bases Cardiovascular exam: PRESENT: RRR. ABSENT: diastolic murmur, rubs, systolic murmur GI/Abdominal exam: PRESENT: normal bowel sounds, soft Extremities exam: ABSENT: pedal edema Musculoskeletal exam: PRESENT: deformity - multiple joints with features of arthritis Neurological exam: PRESENT: alert, awake, oriented to person, oriented to place , oriented to time, oriented to situation, CN II-XII grossly intact. ABSENT: motor sensory deficit Skin exam: PRESENT: dry, warm Results Laboratory Results: 09/01/17 04:13 09/01/17 04:13 09/01/17 09/01/17 04:13 04:13 WBC 5.6 RBC 4.09 L Hgb 11.0 L Hct 33.7 L MCV 82 MCH 26.8 L MCHC 32.5 RDW 15.7 H Plt Count 100 L Seg Neutrophils % 65.9 Lymphocytes % 18.8 Monocytes % 10.3 Eosinophils % 4.6 Basophils % 0.4 Absolute Neutrophils 3.7 Absolute Lymphocytes 1.1 Absolute Monocytes 0.6 Absolute Eosinophils 0.3 Absolute Basophils 0.0 Sodium 142.4 Potassium 3.8 Chloride 111 H Carbon Dioxide 23 Anion Gap 8 BUN 17 Creatinine 0.90 Est GFR ( Amer) > 60 Est GFR (Non-Af Amer) > 60 Glucose 93 Calcium 9.2 Total Bilirubin 0.3 AST 15 L ALT 21 Alkaline Phosphatase 60 Total Protein 5.4 L Albumin 2.7 L 08/28/17 08/28/17 08/28/17 14:55 14:55 22:25 Creatine Kinase 26 L 23 L CK-MB (CK-2) 0.26 Troponin I < 0.012 08/28/17 08/29/17 08/29/17 22:25 06:54 06:54 Creatine Kinase 25 L CK-MB (CK-2) 0.30 0.39 Troponin I < 0.012 < 0.012 08/29/17 08/29/17 08/30/17 22:09 22:09 04:16 Creatine Kinase 38 L 34 L CK-MB (CK-2) Troponin I < 0.012 08/30/17 08/30/17 08/30/17 04:16 10:29 10:29 Creatine Kinase 36 L CK-MB (CK-2) Troponin I < 0.012 < 0.012 Impressions: Chest CT 08/28/17 00:00 IMPRESSION: Minimal airspace disease posterior right lower lobe. Chest X-Ray 08/28/17 14:19 IMPRESSION: Cannot entirely exclude a lower lobe infiltrate although this is not appreciated on the PA image. Head MRI 08/29/17 00:00 IMPRESSION: 1. Small acute left thalamic and dorsal pontine infarcts. 2. Acute on chronic paranasal sinus disease. 3. Otherwise, chronic changes of atrophy and small vessel disease. EVIDENCE OF ACUTE STROKE: YES. LEFT THALAMIC AND PONTINE ARTERIES. Carotid Doppler Study 08/30/17 00:00 IMPRESSION: NO HEMODYNAMICALLY SIGNIFICANT STENOSIS. 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 Is this a current diagnosis for this admission?: Yes (2) Infection due to Citrobacter Is this a current diagnosis for this admission?: Yes (3) Gram-positive cocci in clusters Is this a current diagnosis for this admission?: Yes (4) Chronic obstructive pulmonary disease Qualifiers: COPD type: unspecified COPD Qualified Code(s): J44.9 - Chronic obstructive pulmonary disease, unspecified Is this a current diagnosis for this admission?: Yes (5) Peripheral vascular disease Is this a current diagnosis for this admission?: Yes - Time Time Spent with patient: 25-34 minutes Medications reviewed and adjusted accordingly: Yes Anticipated discharge: Home with Homehealth Within: Other - Inpatient Certification Based on my medical assessment, after consideration of the patient's comorbidities, presenting symptoms, or acuity I expect that the services needed warrant INPATIENT care.: Yes I certify that my determination is in accordance with my understanding of Medicare's requirements for reasonable and necessary INPATIENT services [42 CFR 412.3e].: Yes Medical Necessity: Need Close Monitoring Due to Risk of Patient Decompensation, Need For Continuous Telemetry Monitoring, Risk of Complication if Not Cared For in Hospital Post Hospital Care: D/C 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 I encouraged usage of flutter and incentive spirometry.
[2017-09-01] MEDS: ATORVASTATIN CALCIUM 20 MG TABLET PO SCH (21:52)
[2017-09-01] MEDS: ATORVASTATIN CALCIUM 80 MG TABLET PO SCH (21:52)
[2017-09-02] MEDS: APIXABAN 2.5 MG TABLET PO SCH ×2 (09:59→21:48)
[2017-09-02] MEDS: FINASTERIDE 5 MG TABLET PO SCH (09:59)
[2017-09-02] MEDS: ASPIRIN/DIPYRIDAMOLE 25-200 MG 1 CAP.SR CPMP.12HR PO SCH ×2 (09:59→21:48)
[2017-09-02] MEDS: LEVOFLOXACIN 750 MG TABLET PO SCH (14:48)
--- NOTE | 2017-09-02 21:44 | PDOC PROGRESS REPORT ---
Subjective Progress Note for:: 09/02/17 Subjective:: Patient was seen by the bedside, he is able to go to rehab at this point Reason For Visit: LEFT THALAMIC CVA Physical Exam Vital Signs: Temp Pulse Resp BP Pulse Ox 98.3 F 76 16 123/74 99 09/02/17 19:25 09/02/17 19:25 09/02/17 19:25 09/02/17 19:25 09/02/17 19:25 Intake & Output 09/01/17 09/02/17 09/03/17 06:59 06:59 06:59 Intake Total 1065 1015 760 Output Total 750 675 450 Balance 315 340 310 Weight 75.7 kg 73.9 kg General appearance: PRESENT: no acute distress Eye exam: PRESENT: PERRLA Respiratory exam: PRESENT: clear to auscultation sariah Cardiovascular exam: PRESENT: +S1, +S2 GI/Abdominal exam: PRESENT: soft Neurological exam: PRESENT: alert Results Laboratory Results: 09/01/17 04:13 09/01/17 04:13 08/28/17 14:55 Blood Blood Culture - Final NO GROWTH IN 5 DAYS 08/28/17 14:48 Blood Blood Culture - Final Staphylococcus Lugdunensis 08/28/17 08/28/17 08/28/17 14:55 14:55 22:25 Creatine Kinase 26 L 23 L CK-MB (CK-2) 0.26 Troponin I < 0.012 08/28/17 08/29/17 08/29/17 22:25 06:54 06:54 Creatine Kinase 25 L CK-MB (CK-2) 0.30 0.39 Troponin I < 0.012 < 0.012 08/29/17 08/29/17 08/30/17 22:09 22:09 04:16 Creatine Kinase 38 L 34 L CK-MB (CK-2) Troponin I < 0.012 08/30/17 08/30/17 08/30/17 04:16 10:29 10:29 Creatine Kinase 36 L CK-MB (CK-2) Troponin I < 0.012 < 0.012 Impressions: Chest CT 08/28/17 00:00 IMPRESSION: Minimal airspace disease posterior right lower lobe. Chest X-Ray 08/28/17 14:19 IMPRESSION: Cannot entirely exclude a lower lobe infiltrate although this is not appreciated on the PA image. Head MRI 08/29/17 00:00 IMPRESSION: 1. Small acute left thalamic and dorsal pontine infarcts. 2. Acute on chronic paranasal sinus disease. 3. Otherwise, chronic changes of atrophy and small vessel disease. EVIDENCE OF ACUTE STROKE: YES. LEFT THALAMIC AND PONTINE ARTERIES. Carotid Doppler Study 08/30/17 00:00 IMPRESSION: NO HEMODYNAMICALLY SIGNIFICANT STENOSIS. 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
[2017-09-02] MEDS: ATORVASTATIN CALCIUM 80 MG TABLET PO SCH (21:48)
[2017-09-03] MEDS: FINASTERIDE 5 MG TABLET PO SCH (10:17)
[2017-09-03] MEDS: APIXABAN 2.5 MG TABLET PO SCH (10:18)
[2017-09-03] MEDS: ASPIRIN/DIPYRIDAMOLE 25-200 MG 1 CAP.SR CPMP.12HR PO SCH ×2 (10:18→21:39)
[2017-09-03] MEDS: LEVOFLOXACIN 750 MG TABLET PO SCH (14:43)
--- NOTE | 2017-09-03 20:42 | PDOC PROGRESS REPORT ---
Subjective Progress Note for:: 09/03/17 Subjective:: Patient was seen by the bedside, he will be transferred to the skilled nursing for rehabilitation Reason For Visit: LEFT THALAMIC CVA Physical Exam Vital Signs: Temp Pulse Resp BP Pulse Ox 98.0 F 84 19 121/71 98 09/03/17 20:18 09/03/17 20:18 09/03/17 20:18 09/03/17 20:18 09/03/17 20:18 Intake & Output 09/02/17 09/03/17 09/04/17 06:59 06:59 06:59 Intake Total 1015 1280 480 Output Total 675 1050 Balance 340 230 480 Weight 73.9 kg 68.8 kg General appearance: PRESENT: no acute distress, well-developed, well-nourished Head exam: PRESENT: atraumatic, normocephalic Eye exam: PRESENT: conjunctiva pink, EOMI, PERRLA. ABSENT: scleral icterus Ear exam: PRESENT: normal external ear exam Mouth exam: PRESENT: moist, tongue midline Neck exam: PRESENT: full ROM Respiratory exam: PRESENT: clear to auscultation sariah Cardiovascular exam: PRESENT: RRR, +S1, +S2 Vascular exam: PRESENT: normal capillary refill GI/Abdominal exam: PRESENT: normal bowel sounds, soft Rectal exam: PRESENT: deferred Neurological exam: PRESENT: alert, awake, oriented to person, oriented to place , oriented to time, oriented to situation, CN II-XII grossly intact Psychiatric exam: PRESENT: appropriate affect, normal mood Skin exam: PRESENT: dry, intact, warm. ABSENT: cyanosis, rash Results Laboratory Results: 09/01/17 04:13 09/01/17 04:13 08/28/17 08/28/17 08/28/17 14:55 14:55 22:25 Creatine Kinase 26 L 23 L CK-MB (CK-2) 0.26 Troponin I < 0.012 08/28/17 08/29/17 08/29/17 22:25 06:54 06:54 Creatine Kinase 25 L CK-MB (CK-2) 0.30 0.39 Troponin I < 0.012 < 0.012 08/29/17 08/29/17 08/30/17 22:09 22:09 04:16 Creatine Kinase 38 L 34 L CK-MB (CK-2) Troponin I < 0.012 08/30/17 08/30/17 08/30/17 04:16 10:29 10:29 Creatine Kinase 36 L CK-MB (CK-2) Troponin I < 0.012 < 0.012 Impressions: Chest CT 08/28/17 00:00 IMPRESSION: Minimal airspace disease posterior right lower lobe. Chest X-Ray 08/28/17 14:19 IMPRESSION: Cannot entirely exclude a lower lobe infiltrate although this is not appreciated on the PA image. Head MRI 08/29/17 00:00 IMPRESSION: 1. Small acute left thalamic and dorsal pontine infarcts. 2. Acute on chronic paranasal sinus disease. 3. Otherwise, chronic changes of atrophy and small vessel disease. EVIDENCE OF ACUTE STROKE: YES. LEFT THALAMIC AND PONTINE ARTERIES. Carotid Doppler Study 08/30/17 00:00 IMPRESSION: NO HEMODYNAMICALLY SIGNIFICANT STENOSIS. 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
--- NOTE | 2017-09-03 21:01 | PDOC TRANSFER SUMMARY ---
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 Is this a current diagnosis for this admission?: Yes (2) Peripheral vascular disease Is this a current diagnosis for this admission?: Yes (3) Chronic obstructive pulmonary disease Is this a current diagnosis for this admission?: Yes (4) Urinary tract infection Is this a current diagnosis for this admission?: Yes - Additional Information Resuscitation Status: Full Code Prescriptions: Losartan Potassium [Cozaar] 100 mg PO DAILY #120 tablet Home Medications: Finasteride [Proscar] 5 mg PO DAILY 08/28/17 Metoprolol Succinate [Toprol Xl 25 mg Tab.sr] 25 mg PO DAILY 08/28/17 Acetaminophen [Tylenol 325 mg Tablet] 650 mg PO Q4HP PRN tablet 09/03/17 Aspirin/Dipyridamole [Aggrenox 25 mg/200 mg Capsule SA] 1 cap.sr PO Q12 cpmp.12hr 09/03/17 Atorvastatin Calcium [Lipitor 20 mg Tablet] 80 mg PO QHS #0 09/03/17 Atorvastatin Calcium [Lipitor 80 mg Tablet] 80 mg PO QHS tablet 09/03/17 Losartan Potassium [Cozaar] 100 mg PO DAILY #120 tablet 09/03/17 History of Present Illness Admission Date/PCP: 08/28/17 12:22 STEVE DOTY MD History of Present Illness: YELENA SANCHEZ is a 76 year old male, He came to the office today with his for evaluation of low blood pressure and hypoxemia on pulse oximetry. Patient's said the last 3 days he has not been acting himself, is coughing is not particularly engaging, in the office he would not answer questions which is out of character. The gait was very slow, he was admitted directly from the office to the hospital for further evaluation. Chest x-ray suggests pneumonia, CT chest was done there was no pneumonia it showed advanced COPD.He was initially brought in for observation after further evaluation it was found to have a slight right facial droop, intracranial event was suspected, CVA versus a space occupying lesion in the brain MRI brain was ordered it confirmed a left thalamic stroke Hospital Course Hospital Course: Patient was admitted for the management of left thalamic stroke, embolic stroke , he was managed according to stroke protocol carotid Doppler was done there was no significant hemodynamic lesion found on Doppler, he was treated with antiplatelet, Aggrenox and also anticoagulant with Eliquis Eliquis was used because of history of DVT and pulmonary embolus but it was discontinued on discharge because of increased risk of hemorrhage when used in combination with Aggrenox. Physical Exam Vital Signs: Temp Pulse Resp BP Pulse Ox 98.0 F 84 19 121/71 98 09/03/17 20:18 09/03/17 20:18 09/03/17 20:18 09/03/17 20:18 09/03/17 20:18 Intake & Output 09/02/17 09/03/17 09/04/17 06:59 06:59 06:59 Intake Total 1015 1280 480 Output Total 675 1050 Balance 340 230 480 Weight 73.9 kg 68.8 kg General appearance: PRESENT: no acute distress Head exam: PRESENT: atraumatic, normocephalic Eye exam: PRESENT: PERRLA Ear exam: PRESENT: normal external ear exam Mouth exam: PRESENT: moist, tongue midline Respiratory exam: PRESENT: clear to auscultation sariah Cardiovascular exam: PRESENT: +S1, +S2 Pulses: PRESENT: normal dorsalis pedis pul Vascular exam: PRESENT: normal capillary refill GI/Abdominal exam: PRESENT: soft Rectal exam: PRESENT: deferred Extremities exam: PRESENT: full ROM Neurological exam: PRESENT: alert Psychiatric exam: PRESENT: appropriate affect, normal mood Skin exam: PRESENT: dry, intact, warm Results Laboratory Results: 09/01/17 04:13 09/01/17 04:13 08/28/17 08/28/17 08/28/17 14:55 14:55 22:25 Creatine Kinase 26 L 23 L CK-MB (CK-2) 0.26 Troponin I < 0.012 08/28/17 08/29/17 08/29/17 22:25 06:54 06:54 Creatine Kinase 25 L CK-MB (CK-2) 0.30 0.39 Troponin I < 0.012 < 0.012 08/29/17 08/29/17 08/30/17 22:09 22:09 04:16 Creatine Kinase 38 L 34 L CK-MB (CK-2) Troponin I < 0.012 08/30/17 08/30/17 08/30/17 04:16 10:29 10:29 Creatine Kinase 36 L CK-MB (CK-2) Troponin I < 0.012 < 0.012 Impressions: Chest CT 08/28/17 00:00 IMPRESSION: Minimal airspace disease posterior right lower lobe. Chest X-Ray 08/28/17 14:19 IMPRESSION: Cannot entirely exclude a lower lobe infiltrate although this is not appreciated on the PA image. Head MRI 08/29/17 00:00 IMPRESSION: 1. Small acute left thalamic and dorsal pontine infarcts. 2. Acute on chronic paranasal sinus disease. 3. Otherwise, chronic changes of atrophy and small vessel disease. EVIDENCE OF ACUTE STROKE: YES. LEFT THALAMIC AND PONTINE ARTERIES. Carotid Doppler Study 08/30/17 00:00 IMPRESSION: NO HEMODYNAMICALLY SIGNIFICANT STENOSIS. Qualifiers - * PATIENT BEING DISCHARGED WITH ANY OF THE FOLLOWING DIAGNOSIS: No, Stroke VTE patient discharged on overlapping Therapy?: Yes Stroke Pt being discharged on Anti-thrombolytic therapy?: Yes Stroke Pt being discharged on Anti-coagulation therapy?: No Reason(s) for not prescribing Anti-coagulation therapy:: Not indicated Stroke Pt being discharged on Statins?: Yes
[2017-09-03] MEDS: ATORVASTATIN CALCIUM 80 MG TABLET PO SCH (21:39)
[2017-09-04] MEDS: ASPIRIN/DIPYRIDAMOLE 25-200 MG 1 CAP.SR CPMP.12HR PO SCH (09:45)
[2017-09-04] MEDS: FINASTERIDE 5 MG TABLET PO SCH (09:45)
[2017-09-04] MEDS: LEVOFLOXACIN 750 MG TABLET PO SCH (15:24)
[2017-09-04 17:29] VITALS: BP 116/80
== END 2017-09-04 18:00 | DRG 65 ==
LOC: OBSVTOIN 12:22 → 4W 12:22 → INTOOBSV 12:22 → 3W 08-30 00:21
PROVIDERS: ADMIT Internal Medicine; ATTEND Internal Medicine
DX: I63.219 Cerebral infarction due to unspecified occlusion or stenosis of unspecified vertebral artery (principal); C64.9 Malignant neoplasm of unspecified kidney, except renal pelvis; N39.0 Urinary tract infection, site not specified; I10 Essential (primary) hypertension; I73.9 Peripheral vascular disease, unspecified; J44.9 Chronic obstructive pulmonary disease, unspecified; M19.90 Unspecified osteoarthritis, unspecified site; F32.9 Major depressive disorder, single episode, unspecified; B96.89 Other specified bacterial agents as the cause of diseases classified elsewhere; F17.210 Nicotine dependence, cigarettes, uncomplicated; Z86.718 Personal history of other venous thrombosis and embolism; Z86.711 Personal history of pulmonary embolism
CPT/HCPCS: 36415; 36600; 70553; 71046; 71260; 80048; 80053; 80061; 80076; 81001; 82550; 82553; 82803; 83036; 84484; 85025; 85027; 85610; 85730; 87040; 87077; 87086; 87088; 87186; 93005; 93010; 93306; 93880; 94667; 94668; 94799; G0378; G0379; G8978-GP; G8979-GP; G8987-GO; G8988-GO; G8999-GN; G9186-GN; J3490; J7030

== ENCOUNTER 2018-08-30 15:41 | Inpatient (IN) | payer MEDICARE ==
--- NOTE | 2018-08-30 16:11 | ER Document Report ---
ED General - General Chief Complaint: Altered Mental Status Stated Complaint: SHORTNESS OF BREATH Time Seen by Provider: 08/30/18 16:03 Notes: 78-year-old male with history of CVA, DVT, PVD, hypertension presents to the emergency department brought in by ambulance for altered mental status. According to report patient was not responding and the fire department was ventilating the patient with a BVM at the scene. The paramedics subsequently sternal rubbed him and he responded to painful stimulus and woke up. Patient is nonverbal at baseline, does speak a few words, but will nod and answer questions appropriately. Patient denies fever or chills, dizziness or lightheadedness, headache, vision changes, shortness of breath or chest pain, nausea or vomiting, weakness, unilateral numbness or paresthesias in any of these extremities, no other complaints TRAVEL OUTSIDE OF THE [place] IN LAST 30 DAYS: No - Related Data Allergies/Adverse Reactions: No Known Allergies Allergy (Verified 09/13/14 06:10) Past Medical History - Social History Smoking Status: Unknown if Ever Smoked Family History: Reviewed & Not Pertinent Patient has suicidal ideation: No Patient has homicidal ideation: No - Past Medical History Cardiac Medical History: Reports: Hx DVT, Hx Hypertension, Hx Peripheral Vas cular Disease, Hx Pulmonary Embolism Denies: Hx Coronary Artery Disease, Hx Heart Attack Pulmonary Medical History: Reports: Hx Bronchitis, Hx COPD, Hx Pneumonia, Hx Respiratory Failure Denies: Hx Asthma Neurological Medical History: Denies: Hx Cerebrovascular Accident, Hx Seizures Renal/ Medical History: Reports: Hx Benign Prostatic Hyperplasia. Denies: Hx Peritoneal Dialysis Malignancy Medical History: Reports Hx Renal (Kidney) Cancer GI Medical History: Reports: Hx Gastritis, Hx Ulcer Musculoskeletal Medical History: Reports Hx Arthritis Skin Medical History: Denies Hx MRSA Psychiatric Medical History: Reports: Hx Depression Past Surgical History: Reports: Hx Kidney (Renal Surgery) - RT Nephrectomy, Hx Vascular Surgery. Denies: Hx Pacemaker - Immunizations Immunizations up to date: Yes Hx Diphtheria, Pertussis, Tetanus Vaccination: Yes Hx Pneumococcal Vaccination: 04/29/14 Review of Systems - Review of Systems Constitutional: See HPI EENT: No symptoms reported Cardiovascular: See HPI Respiratory: See HPI Gastrointestinal: See HPI Genitourinary: No symptoms reported Male Genitourinary: No symptoms reported Musculoskeletal: No symptoms reported Skin: No symptoms reported Hematologic/Lymphatic: No symptoms reported Neurological/Psychological: See HPI Physical Exam - Vital signs Vitals: Temp Pulse Resp BP Pulse Ox 98.4 F 62 20 157/99 H 100 08/30/18 15:41 08/30/18 15:41 08/30/18 15:41 08/30/18 15:41 08/30/18 15:41 - Notes Notes: PHYSICAL EXAMINATION: Reviewed vital signs and charting by RN GENERAL: Alert, interacts well. No acute distress. HEAD: Normocephalic, atraumatic. EYES: Pupils equal and round. Extraocular movements intact. ENT: Oral mucosa moist, tongue midline. NECK: Full range of motion. Supple. Trachea midline. LUNGS: Clear to auscultation bilaterally, no wheezes, rales, or rhonchi. No r espiratory distress. HEART: Regular rate and rhythm. No murmur ABDOMEN: soft, non-tender. Non-distended. Bowel sounds present. no McBurney's point tenderness, no Hsieh sign. EXTREMITIES: Moves all 4 extremities spontaneously. No edema, No cyanosis. Normal distal neurovascular exam NEUROLOGIC: Oriented and appropriate. Normal speech. Normal neurologic exam, no focal neuro deficits. PSYCH: Normal affect, normal mood. SKIN: Warm, dry, normal turgor. No rashes or lesions noted. Course - Re-evaluation Re-evalutation: 08/30/18 18:09 Initial troponin negative, chest x-ray did not show evidence of a widened mediastinum, lab work resulted and all within normal limits, troponin negative. I spoke with Dr. Winters and he is requesting a CTA chest and MRI brain with and without prior to disposition. My suspicion is that if there is evidence of a PE that will change treatment plan but ultimately my plan is for admission. 08/30/18 19:40 CTA chest negative for pulmonary embolism. I spoke with Dr. Winters who wants to admit him to the [facility]. I will also add an MRA to the MRI study. Patient is stable, vital signs are within normal limits and have been stable. 08/30/18 19:57 - Vital Signs Vital signs: Temp Pulse Resp BP Pulse Ox 98.4 F 62 16 173/82 H 98 08/30/18 15:41 08/30/18 15:41 08/30/18 19:01 08/30/18 19:01 08/30/18 19:01 - Laboratory Result Diagrams: 08/30/18 15:49 08/30/18 15:49 Laboratory results interpreted by me: 08/30/18 08/30/18 08/30/18 15:49 15:49 17:05 Hgb 11.3 L Hct 37.1 L MCV 76 L MCH 23.1 L MCHC 30.5 L RDW 20.3 H ABG pO2 Chloride 110 H ALT 11 L Albumin 3.1 L Ur Leukocyte Esterase TRACE H 08/30/18 18:25 Hgb Hct MCV MCH MCHC RDW ABG pO2 108.2 H Chloride ALT Albumin Ur Leukocyte Esterase Discharge - Discharge Clinical Impression: Unresponsiveness Condition: Stable Disposition: ADMITTED INPATIENT Admitting Provider: Winters Unit Admitted: DUC
--- NOTE | 2018-08-30 16:41 | RADIOLOGY REPORT (SQ) ---
EXAM DESCRIPTION: CT HEAD WITHOUT COMPLETED DATE/TIME: 08/30/2018 4:21 pm REASON FOR STUDY: syncope COMPARISON: 12/21/2009 TECHNIQUE: Axial images acquired through the brain without intravenous contrast. Images reviewed wi th bone, brain and subdural windows. Images stored on PACS. All CT scanners at this facility use dose modulation, iterative reconstruction, and/or weight based d osing when appropriate to reduce radiation dose to as low as reasonably achievable (ALARA). [facility]: Dose Right [facility]: CareDose [facility]: Dose Right [facility]: Teradose 4D [facility]: Smart [place] RADIATION DOSE: CT Rad equipment meets quality standard of care and radiation dose reduction techniq ues were employed. CTDIvol: 53.2 mGy. DLP: 1017 mGy-cm.mGy. LIMITATIONS: None. FINDINGS: VENTRICLES: Prominent. CEREBRUM: No hemorrhage. No midline shift. Areas of low density in the white matter most likely du e to chronic micro-vascular ischemic change. No evidence for large vessel acute infarction. CEREBELLUM: No masses. No hemorrhage. No alteration of density. No evidence for acute infarction. EXTRAAXIAL SPACES: Age-related involutional change. No fluid collections. No masses. ORBITS AND GLOBE: No intra- or extraconal masses. Normal contour of globe without masses. CALVARIUM: No fracture. PARANASAL SINUSES: Air-fluid levels and mucosal thickening in the left sphenoid sinus. SOFT TISSUES: No mass or hematoma. OTHER: No other significant finding. IMPRESSION: No hemorrhage. No midline shift. Areas of low density in the white matter most likely due to chronic micro-vascular ischemic change. No evidence for large vessel acute infarction.. Air- fluid levels and mucosal thickening in the left sphenoid sinus. EVIDENCE OF ACUTE STROKE: NO. TECHNICAL DOCUMENTATION: JOB ID: [id number] [place]-72 Quality ID # [id number]: Final reports with documentation of one or more dose reduction techniques (e.g., Au tomated exposure control, adjustment of the mA and/or kV according to patient size, use of iterative reconstruction technique) 2010 [employer]- All Rights Reserved Reading location - IP/workstation name: [email or web address]
--- NOTE | 2018-08-30 16:43 | RADIOLOGY REPORT (SQ) ---
EXAM DESCRIPTION: CHEST SINGLE VIEW COMPLETED DATE/TIME: 08/30/2018 4:25 pm REASON FOR STUDY: syncope COMPARISON: 08/28/2017 TECHNIQUE: Frontal and lateral radiographic views of the chest acquired. NUMBER OF VIEWS: Two view. LIMITATIONS: None. FINDINGS: LUNGS AND PLEURA: No pneumothorax. No consolidation or pleural effusion. Similar chronic interstitial markings. MEDIASTINUM AND HILAR STRUCTURES: Stable. HEART AND VASCULAR STRUCTURES: Stable. BONES: No acute findings. HARDWARE: None in the chest. OTHER: No other significant finding. IMPRESSION: NO ACUTE FINDINGS. TECHNICAL DOCUMENTATION: JOB ID: [id number] 2010 [employer]- All Rights Reserved Reading location - IP/workstation name: [email or web address]
[2018-08-30 17:25] LABS: ABSOLUTE EOSINOPHILS # (AUTO) 0.1 10^3/uL (0.0-0.6); ABSOLUTE LYMPHOCYTES (AUTO) 1.4 10^3/uL (0.5-4.7); ABSOLUTE MONOCYTES (AUTO) 0.3 10^3/uL (0.1-1.4); ABSOLUTE NEUT (AUTO) 2.1 10^3/uL (1.7-8.2); BASOPHILS % (AUTO) 0.7 % (0-2); EOSINOPHILS % (AUTO) 3.6 % (0-6); HEMATOCRIT 37.1 % (37.9-51.0); HEMOGLOBIN 11.3 g/dL (13.5-17.0); LYMPHOCYTES % (AUTO) 34.9 % (13-45); MEAN CORPUSCULAR HEMOGLOBIN 23.1 pg (27.0-33.4); MEAN CORPUSCULAR HGB CONC 30.5 g/dL (32.0-36.0); MEAN CORPUSCULAR VOLUME 76 fl (80-97); MONOCYTES % (AUTO) 8.3 % (3-13); PLATELET COUNT 158 10^3/uL (150-450); RED CELL DISTRIBUTION WIDTH 20.3 % (11.5-14.0); SEGMENTED NEUTROPHILS % (AUTO) 52.5 % (42-78); TOTAL CELLS COUNTED % (AUTO) 100 %
[2018-08-30 17:30] LABS: ALANINE AMINOTRANSFERASE 11 U/L (21-72); ALBUMIN 3.1 g/dL (3.5-5.0); ALKALINE PHOSPHATASE 81 U/L (38-126); ANION GAP 7 (5-19); ASPARTATE AMINO TRANSFERASE 19 U/L (17-59); BILIRUBIN,DIRECT 0.3 mg/dL (0.0-0.4); BILIRUBIN,TOTAL 0.5 mg/dL (0.2-1.3); BLOOD UREA NITROGEN 10 mg/dL (7-20); CALCIUM 9.2 mg/dL (8.4-10.2); CARBON DIOXIDE 26 mmol/L (22-30); CHLORIDE 110 mmol/L (98-107); GLUCOSE 86 mg/dL (75-110); POTASSIUM 4.3 mmol/L (3.6-5.0); SODIUM 142.8 mmol/L (137-145); TOTAL PROTEIN 6.3 g/dL (6.3-8.2)
[2018-08-30 17:44] LABS: APPEARANCE,URINE SLIGHTLY-CLOUDY; BILIRUBIN,URINE NEGATIVE (NEGATIVE); COLOR,URINE YELLOW; GLUCOSE, URINE NEGATIVE (NEGATIVE); KETONES,URINE NEGATIVE (NEGATIVE); LEUKOCYTE ESTERASE,URINE TRACE (NEGATIVE); NITRITE,URINE NEGATIVE (NEGATIVE); PROTEIN,URINE NEGATIVE (NEGATIVE); URINE SPECIFIC GRAVITY 1.015; UROBILINOGEN,URINE NEGATIVE mg/dL (<2.0)
[2018-08-30 19:19] LABS: ARTERIAL BLOOD BASE EXCESS -0.8 mmol/L; ARTERIAL BLOOD H2CO3 1.13 mmol/L (1.05-1.35); ARTERIAL BLOOD HCO3 23.5 mmol/L (20-24); ARTERIAL BLOOD PCO2 37.6 mmHg (35-45); ARTERIAL BLOOD PH 7.41 (7.35-7.45); ARTERIAL BLOOD PO2 108.2 mmHg (80-100); ARTERIAL BLOOD TOTAL CO2 24.6 mmol/L (23-27)
[2018-08-30 19:20] LABS: ARTERIAL BLOOD FIO2 2L
--- NOTE | 2018-08-30 19:22 | RADIOLOGY REPORT (SQ) ---
EXAM DESCRIPTION: CTA CHEST COMPLETED DATE/TIME: 08/30/2018 7:04 pm REASON FOR STUDY: ?syncope COMPARISON: 08/28/2017 TECHNIQUE: CT scan of the chest performed using helical scanning technique with dynamic intravenous contrast injection. Images reviewed with lung, soft tissue and bone windows. Reconstructed coronal and sagittal MPR images reviewed. Additional 3 dimensional post-processing performed to develop Maximal Intensity Projection images (ME P). All images stored on PACS. All CT scanners at this facility use dose modulation, iterative reconstruction, and/or weight based d osing when appropriate to reduce radiation dose to as low as reasonably achievable (ALARA). [facility]: Dose Right [facility]: CareDose [facility]: Dose Right [facility]: Teradose 4D [facility]: [employer] CONTRAST TYPE AND DOSE: contrast/concentration: Isovue 350.00 mg/ml; Total Contrast Delivered: 74.0 ml; Total Saline Delivered: 80.0 ml Contrast bolus optimized for the pulmonary arteries. Not diagnostic for the aorta. RENAL FUNCTION: GFR > 60. RADIATION DOSE: CT Rad equipment meets quality standard of care and radiation dose reduction techniq ues were employed. CTDIvol: 14.4 - 59.5 mGy. DLP: 664 mGy-cm. . LIMITATIONS: None. FINDINGS: LUNGS AND PLEURA: No masses, consolidation, or pneumothorax. Similar chronic interstitial changes -emphysema. No pleural effusions or pleural calcifications. AORTA AND GREAT VESSELS: No aneurysm. Contrast bolus not optimized for the aorta. HEART: No pericardial effusion. Moderate coronary artery calcifications. PULMONARY ARTERIES: No emboli visualized in the main pulmonary arteries or the segmental branches. HILAR AND MEDIASTINAL STRUCTURES: Similar scattered nodes. HARDWARE: None in the chest. UPPER ABDOMEN: No acute findings. Limited exam. THYROID AND OTHER SOFT TISSUES: No masses. No adenopathy. BONES: No acute or significant finding. 3D MIPS: Confirm above findings. OTHER: No other significant finding. IMPRESSION: No acute findings. NO PULMONARY EMBOLI. COMMENT: Quality ID # [id number]: Final reports with documentation of one or more dose reduction techniques (e.g., Automated exposure control, adjustment of the mA and/or kV according to patient size, use of iterative reconstruction technique) TECHNICAL DOCUMENTATION: JOB ID: [id number] [place]-72 2010 [employer]- All Rights Reserved Reading location - IP/workstation name: [email or web address]
[2018-08-30] MEDS ORDERED: ACETAMINOPHEN 650 MG SUPP.RECT PR PRN (19:41)
[2018-08-30] MEDS: IPRATROPIUM/ALBUTEROL 0.5-2.5 MG/3 ML AMPUL NEB SCH (20:39)
--- NOTE | 2018-08-30 21:49 | Progress Note ---
Provider Note Provider Note: Patient seen and examined in the emergency departments reviewed all records discussed with the nursing staff
[2018-08-30 22:40] LABS: CREATINE KINASE MB < 0.22 ng/mL (<4.55); TROPONIN I < 0.012 ng/mL
--- NOTE | 2018-08-30 22:56 | EKG REPORT ---
SEVERITY:- ABNORMAL ECG - SINUS RHYTHM FIRST DEGREE AV BLOCK RBBB AND LPFB : Confirmed by: Breonna Villavicencio 30-Aug-2018 22:54:58
[2018-08-31 04:03] LABS: ABSOLUTE EOSINOPHILS # (AUTO) 0.2 10^3/uL (0.0-0.6); ABSOLUTE LYMPHOCYTES (AUTO) 1.3 10^3/uL (0.5-4.7); ABSOLUTE MONOCYTES (AUTO) 0.4 10^3/uL (0.1-1.4); ABSOLUTE NEUT (AUTO) 2.7 10^3/uL (1.7-8.2); EOSINOPHILS % (AUTO) 4.5 % (0-6); HEMATOCRIT 35.6 % (37.9-51.0); MEAN CORPUSCULAR HEMOGLOBIN 23.5 pg (27.0-33.4); MEAN CORPUSCULAR HGB CONC 30.9 g/dL (32.0-36.0); MEAN CORPUSCULAR VOLUME 76 fl (80-97); MONOCYTES % (AUTO) 9.5 % (3-13); PLATELET COUNT 149 10^3/uL (150-450); RED BLOOD COUNT 4.69 10^6/uL (4.35-5.55); RED CELL DISTRIBUTION WIDTH 20.2 % (11.5-14.0); TOTAL CELLS COUNTED % (AUTO) 100 %; WHITE BLOOD COUNT 4.7 10^3/uL (4.0-10.5)
[2018-08-31 04:32] LABS: ALANINE AMINOTRANSFERASE 14 U/L (21-72); ALBUMIN 3.1 g/dL (3.5-5.0); ALKALINE PHOSPHATASE 74 U/L (38-126); ANION GAP 8 (5-19); ASPARTATE AMINO TRANSFERASE 11 U/L (17-59); BILIRUBIN,DIRECT 0.3 mg/dL (0.0-0.4); BILIRUBIN,TOTAL 0.4 mg/dL (0.2-1.3); BLOOD UREA NITROGEN 10 mg/dL (7-20); CALCIUM 9.9 mg/dL (8.4-10.2); CARBON DIOXIDE 28 mmol/L (22-30); CHLORIDE 107 mmol/L (98-107); GLUCOSE 110 mg/dL (75-110); POTASSIUM 3.6 mmol/L (3.6-5.0); SODIUM 143.2 mmol/L (137-145); TOTAL PROTEIN 6.2 g/dL (6.3-8.2)
[2018-08-31 04:47] LABS: CREATINE KINASE MB < 0.22 ng/mL (<4.55); TROPONIN I < 0.012 ng/mL
[2018-08-31] MEDS: PANTOPRAZOLE SODIUM 20 MG TABLET.DR PO SCH (05:49)
[2018-08-31] MEDS: IPRATROPIUM/ALBUTEROL 0.5-2.5 MG/3 ML AMPUL NEB SCH ×3 (07:56→20:02)
--- NOTE | 2018-08-31 09:41 | RADIOLOGY REPORT (SQ) ---
EXAM DESCRIPTION: MRA HEAD WITHOUT COMPLETED DATE/TIME: 08/31/2018 9:28 am REASON FOR STUDY: ?syncope COMPARISON: None. TECHNIQUE: Axial 3-D [id number] acquisition imaging performed through the brain in the area of t he [place] of [place]. Images reformatted using 3-D MIPS. LIMITATIONS: None. FINDINGS: SOURCE IMAGES: No unexpected findings on source images. No large masses. 3-D MIP: No aneurysm. No occlusions. No significant stenosis. Normal variant right focus tears cer ebral artery arises from the anterior circulation via widely patent posterior communicator. OTHER: No other significant finding. IMPRESSION: NORMAL MRA OF THE [place] OF [place]. TECHNICAL DOCUMENTATION: JOB ID: [id number] [employer]- All Rights Reserved Reading location - IP/workstation name: [email or web address]
--- NOTE | 2018-08-31 09:47 | RADIOLOGY REPORT (SQ) ---
EXAM DESCRIPTION: MRI HEAD COMBO COMPLETED DATE/TIME: 08/31/2018 9:28 am REASON FOR STUDY: ?syncope COMPARISON: CT scan 08/30/2018 TECHNIQUE: Multiplanar imaging includes noncontrasted T1, T2, FLAIR, Diffusion with ADC map and post gadolinium contrast T1 sequences. Via Images stored on PACS. CONTRAST TYPE AND DOSE: 10 mL Dotarem RENAL FUNCTION: Not indicated. ACR Type II contrast agent associated with few, if any, unconfounded cases of NSF LIMITATIONS: None. FINDINGS: ANATOMY: No anomalies. Normal vascular flow voids. Pituitary fossa normal. CSF SPACES: Atrophy-induced prominence of CSF spaces and ventricles. CEREBRUM: High-signal intensity lesions scattered throughout the white matter on FLAIR imaging with d istribution suggesting chronic micro-vascular ischemic change. No evidence of hemorrhage, mass, extra axial fluid collection or acute ischemic change. No enhancing lesions. POSTERIOR FOSSA: No signal alteration. No hemorrhage. No edema, masses, or mass effect. Internal venecia tory canals, cerebello-pontine angles, mastoids normal. No enhancing lesions. ORBITS: No masses. Globes normal. PARANASAL SINUSES: Extensive sphenoid sinus disease. DIFFUSION: Normal. No evidence of recent infarct. OTHER: No other significant finding. IMPRESSION: ATROPHY AND CHRONIC MICRO-VASCULAR ISCHEMIC CHANGES. OTHERWISE UNREMARKABLE MRI OF THE B RAIN WITHOUT AND WITH INTRAVENOUS GADOLINIUM CONTRAST. Extensive sphenoid sinus disease. EVIDENCE OF ACUTE STROKE: NO. TECHNICAL DOCUMENTATION: JOB ID: [id number] [employer] All Rights Reserved Reading location - IP/workstation name: [email or web address]
[2018-08-31] MEDS ORDERED: ENOXAPARIN SODIUM INJ 40 MG/0.4 ML DISP.SYRIN SUBCUT SCH (10:00)
[2018-08-31] MEDS: DOCUSATE SODIUM 100 MG CAPSULE PO SCH ×2 (10:08→20:45)
--- NOTE | 2018-08-31 10:14 | PDOC H&P ---
History of Present Illness Admission Date/PCP: 08/30/18 19:45 STEVE DOTY MD Patient complains of: Syncopal episode History of Present Illness: YELENA SANCHEZ is a 78 year old male This is a 78-year-old male of Dr. Doty with a history of the stroke came to the emergency department by the EMS because of the syncopal episode At home patient's found unresponsive and EMS did a sternal rub and fire people do the bag him and brought to the emergency department In the ER patient's alert awake all work-up is negative including the patient CT of the chest was negative for any pulmonary embolism Patient's when I saw it denied any chest pain denied any shortness of the breath Patients have a history of the stroke last year order the MRI today Past Medical History Cardiac Medical History: Reports: DVT, Hypertension, Peripheral Vascular Disease, Pulmonary Embolism Denies: Coronary Artery Disease, Myocardial Infarction Pulmonary Medical History: Reports: Bronchitis, Chronic Obstructive Pulmonary Disease (COPD), Pneumonia, Respiratory Failure Denies: Asthma Neurological Medical History: Denies: Seizures Malignancy Medical History: Reports: Renal (Kidney) Cancer Musculoskeltal Medical History: Reports: Arthritis Psychiatric Medical History: Denies: Depression Hematology: Denies: Anemia Past Surgical History Past Surgical History: Reports: Vascular Surgery Denies: Pacemaker Social History Smoking Status: Current Every Day Smoker Cigarettes Packs Per Day: 0.5 Number of Years Smokin Last Time Smoked: 2 days ago Frequency of Alcohol Use: None Hx Recreational Drug Use: No Drugs: None Hx Prescription Drug Abuse: No - Advance Directive Resuscitation Status: Full Code Family History Family History: Reviewed & Not Pertinent Parental Family History Reviewed: Yes Children Family History Reviewed: Yes Sibling(s) Family History Reviewed.: Yes Medication/Allergy Home Medications: Finasteride [Proscar] 5 mg PO DAILY 08/28/17 Metoprolol Succinate [Toprol Xl 25 mg Tab.sr] 25 mg PO DAILY 08/28/17 Acetaminophen [Tylenol 325 mg Tablet] 650 mg PO Q4HP PRN tablet 09/03/17 Aspirin/Dipyridamole [Aggrenox 25 mg/200 mg Capsule SA] 1 cap.sr PO Q12 cpmp.12hr 09/03/17 Atorvastatin Calcium [Lipitor 20 mg Tablet] 80 mg PO QHS #0 09/03/17 Atorvastatin Calcium [Lipitor 80 mg Tablet] 80 mg PO QHS tablet 09/03/17 Losartan Potassium [Cozaar] 100 mg PO DAILY #120 tablet 09/03/17 Allergies/Adverse Reactions: No Known Allergies Allergy (Verified 09/13/14 06:10) Review of Systems ROS unobtainable: Due to mental status All systems: reviewed and no additional remarkable complaints except as stated Physical Exam Vital Signs: Temp Pulse Resp BP Pulse Ox 97.7 F 83 16 132/66 H 92 08/31/18 07:04 08/31/18 07:56 08/31/18 07:56 08/31/18 07:04 08/31/18 07:56 Intake & Output 08/30/18 08/31/18 09/01/18 06:59 06:59 06:59 Output Total 400 Balance -400 Weight 63.6 kg General appearance: PRESENT: no acute distress, well-developed, well-nourished Head exam: PRESENT: atraumatic, normocephalic Eye exam: PRESENT: conjunctiva pink, EOMI, PERRLA. ABSENT: scleral icterus Ear exam: PRESENT: normal external ear exam Mouth exam: PRESENT: moist, tongue midline Neck exam: PRESENT: full ROM. ABSENT: carotid bruit, JVD, lymphadenopathy, thyromegaly Respiratory exam: PRESENT: clear to auscultation sariah Cardiovascular exam: PRESENT: RRR. ABSENT: diastolic murmur, rubs, systolic murmur Vascular exam: PRESENT: normal capillary refill GI/Abdominal exam: PRESENT: normal bowel sounds, soft. ABSENT: distended, guarding, mass, organolmegaly, rebound, tenderness Rectal exam: PRESENT: deferred Extremities exam: ABSENT: pedal edema Neurological exam: PRESENT: alert, awake, oriented to person, oriented to place, oriented to time, oriented to situation, reflexes normal. ABSENT: motor sensory deficit Psychiatric exam: PRESENT: appropriate affect, normal mood. ABSENT: homicidal ideation, suicidal ideation Skin exam: PRESENT: dry, intact, warm. ABSENT: cyanosis, rash Results Laboratory Results: 08/31/18 03:50 08/31/18 03:50 08/30/18 08/30/18 08/30/18 15:49 15:49 17:05 WBC 4.0 RBC 4.90 Hgb 11.3 L Hct 37.1 L MCV 76 L MCH 23.1 L MCHC 30.5 L RDW 20.3 H Plt Count 158 Seg Neutrophils % 52.5 Lymphocytes % 34.9 Monocytes % 8.3 Eosinophils % 3.6 Basophils % 0.7 Absolute Neutrophils 2.1 Absolute Lymphocytes 1.4 Absolute Monocytes 0.3 Absolute Eosinophils 0.1 Absolute Basophils 0.0 Carbonic Acid HCO3/H2CO3 Ratio ABG pH ABG pCO2 ABG pO2 ABG HCO3 ABG O2 Saturation ABG Base Excess FiO2 Sodium 142.8 Potassium 4.3 Chloride 110 H Carbon Dioxide 26 Anion Gap 7 BUN 10 Creatinine 1.09 Est GFR ( Amer) > 60 Est GFR (Non-Af Amer) > 60 Glucose 86 Calcium 9.2 Total Bilirubin 0.5 AST 19 ALT 11 L Alkaline Phosphatase 81 Total Protein 6.3 Albumin 3.1 L Urine Color YELLOW Urine Appearance SLIGHTLY-CLOUDY Urine pH 6.0 Ur Specific Maple 1.015 Urine Protein NEGATIVE Urine Glucose (UA) NEGATIVE Urine Ketones NEGATIVE Urine Blood NEGATIVE Urine Nitrite NEGATIVE Ur Leukocyte Esterase TRACE H Urine WBC (Auto) 2 Urine RBC (Auto) 0 08/30/18 08/31/18 08/31/18 18:25 03:50 03:50 WBC 4.7 RBC 4.69 Hgb 11.0 L Hct 35.6 L MCV 76 L MCH 23.5 L MCHC 30.9 L RDW 20.2 H Plt Count 149 L Seg Neutrophils % 58.0 Lymphocytes % 27.0 Monocytes % 9.5 Eosinophils % 4.5 Basophils % 1.0 Absolute Neutrophils 2.7 Absolute Lymphocytes 1.3 Absolute Monocytes 0.4 Absolute Eosinophils 0.2 Absolute Basophils 0.0 Carbonic Acid 1.13 HCO3/H2CO3 Ratio 20:1 ABG pH 7.41 ABG pCO2 37.6 ABG pO2 108.2 H ABG HCO3 23.5 ABG O2 Saturation 98.0 ABG Base Excess -0.8 FiO2 2L Sodium 143.2 Potassium 3.6 Chloride 107 Carbon Dioxide 28 Anion Gap 8 BUN 10 Creatinine 1.15 Est GFR ( Amer) > 60 Est GFR (Non-Af Amer) > 60 Glucose 110 Calcium 9.9 Total Bilirubin 0.4 AST 11 L ALT 14 L Alkaline Phosphatase 74 Total Protein 6.2 L Albumin 3.1 L Urine Color Urine Appearance Urine pH Ur Specific [place] Urine Protein Urine Glucose (UA) Urine Ketones Urine Blood Urine Nitrite Ur Leukocyte Esterase Urine WBC (Auto) Urine RBC (Auto) 08/30/18 08/30/18 08/30/18 15:49 21:50 21:50 Creatine Kinase < 20 L CK-MB (CK-2) < 0.22 Troponin I < 0.012 < 0.012 08/31/18 08/31/18 03:50 03:50 Creatine Kinase < 20 L CK-MB (CK-2) < 0.22 Troponin I < 0.012 Impressions: Chest X-Ray 08/30/18 16:09 IMPRESSION: NO ACUTE FINDINGS. Head CT 08/30/18 16:09 IMPRESSION: No hemorrhage. No midline shift. Areas of low density in the white matter most likely due to chronic micro-vascular ischemic change. No evidence for large vessel acute infarction.. Air-fluid levels and mucosal thickening in the left sphenoid sinus. EVIDENCE OF ACUTE STROKE: NO. Chest/Abdomen CTA 08/30/18 18:08 IMPRESSION: No acute findings. NO PULMONARY EMBOLI. Head MRI 08/30/18 18:48 IMPRESSION: ATROPHY AND CHRONIC MICRO-VASCULAR ISCHEMIC CHANGES. OTHERWISE UNREMARKABLE MRI OF THE BRAIN WITHOUT AND WITH INTRAVENOUS GADOLINIUM CONTRAST. Extensive sphenoid sinus disease. EVIDENCE OF ACUTE STROKE: NO. Brain MRI with MRA 08/30/18 19:46 IMPRESSION: NORMAL MRA OF THE [place] OF [place]. Assessment & Plan - Diagnosis (1) Unresponsiveness Is this a current diagnosis for this admission?: Yes Plan: Patient initial work-up was all negative will wait for the MRI and MRA of the head patient is currently alert awake oriented (2) History of cardioembolic cerebrovascular accident (CVA) Is this a current diagnosis for this admission?: Yes Plan: Greg a current medications will get the MRI (3) Chronic obstructive pulmonary disease Qualifiers: COPD type: unspecified COPD Qualified Code(s): J44.9 - Chronic obstructive pulmonary disease, unspecified Is this a current diagnosis for this admission?: Yes Plan: Continues to nebulizer treatments (4) 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 Is this a current diagnosis for this admission?: Yes Plan: Was on Coumadin in the past but not taking No family member available to discuss why he is noting patient unable to answer the questions Patient CT angiogram is negative's Will discuss with the family - Time Time Spent: 30 to 50 Minutes Medications reviewed and adjusted accordingly: Yes Anticipated discharge: Home Within: Other - Inpatient Certification Based on my medical assessment, after consideration of the patient's comorbidities, presenting symptoms, or acuity I expect that the services needed warrant INPATIENT care.: Yes I certify that my determination is in accordance with my understanding of Medicare's requirements for reasonable and necessary INPATIENT services [42 CFR 412.3e].: Yes Medical Necessity: Need Close Monitoring Due to Risk of Patient Decompensation Post Hospital Care: D/C [employer] Documentation - Plan Summary Plan Summary: Admit the patient's in a telemetry monitoring Get the MRI MRA of the head Get the 2D echocardiogram Will wait for Dr. Doty for further anticoagulations management So far patient does not have any PE
[2018-08-31 10:44] LABS: CREATINE KINASE MB < 0.22 ng/mL (<4.55); TROPONIN I < 0.012 ng/mL
[2018-08-31] MEDS ORDERED: CEFTRIAXONE 1 GM/D5W RTU 1 GM/50 ML RTUPB IV ONE ×2 (19:00→20:45)
[2018-09-01 05:17] LABS: ABSOLUTE EOSINOPHILS # (AUTO) 0.2 10^3/uL (0.0-0.6); ABSOLUTE MONOCYTES (AUTO) 0.3 10^3/uL (0.1-1.4); ABSOLUTE NEUT (AUTO) 3.3 10^3/uL (1.7-8.2); BASOPHILS % (AUTO) 0.6 % (0-2); EOSINOPHILS % (AUTO) 3.8 % (0-6); HEMATOCRIT 34.6 % (37.9-51.0); HEMOGLOBIN 10.8 g/dL (13.5-17.0); LYMPHOCYTES % (AUTO) 20.1 % (13-45); MEAN CORPUSCULAR HEMOGLOBIN 23.4 pg (27.0-33.4); MEAN CORPUSCULAR HGB CONC 31.1 g/dL (32.0-36.0); MEAN CORPUSCULAR VOLUME 75 fl (80-97); MONOCYTES % (AUTO) 7.1 % (3-13); PLATELET COUNT 146 10^3/uL (150-450); RED CELL DISTRIBUTION WIDTH 19.9 % (11.5-14.0); SEGMENTED NEUTROPHILS % (AUTO) 68.4 % (42-78); TOTAL CELLS COUNTED % (AUTO) 100 %; WHITE BLOOD COUNT 4.9 10^3/uL (4.0-10.5)
[2018-09-01] MEDS: PANTOPRAZOLE SODIUM 20 MG TABLET.DR PO SCH (05:19)
[2018-09-01] MEDS: IPRATROPIUM/ALBUTEROL 0.5-2.5 MG/3 ML AMPUL NEB SCH ×3 (07:29→20:00)
[2018-09-01] MEDS: DOCUSATE SODIUM 100 MG CAPSULE PO SCH ×2 (09:28→17:19)
[2018-09-01] MEDS: APIXABAN 5 MG TABLET PO SCH ×2 (09:28→17:19)
[2018-09-01] MEDS ORDERED: HYDROCHLOROTHIAZIDE 25 MG TABLET PO SCH (10:00)
[2018-09-01] MEDS ORDERED: FINASTERIDE 5 MG TABLET PO SCH (10:00)
[2018-09-01] MEDS ORDERED: METOPROLOL SUCCINATE 25 MG TAB.SR.24H PO SCH (10:00)
[2018-09-01] MEDS ORDERED: VALSARTAN 160 MG TABLET PO SCH (10:00)
[2018-09-01] MEDS ORDERED: CEFTRIAXONE SODIUM 1,000 MG in DEXTROSE 5%-WATER 50 ML IV SCH (18:00)
[2018-09-01] MEDS ORDERED: CEFTRIAXONE 1 GM/D5W RTU 1 GM/50 ML RTUPB IV SCH (18:00)
--- NOTE | 2018-09-01 20:08 | PDOC DISCHARGE SUMMARY ---
General - Admit/Disc Date/PCP Admission Date/Primary Care Provider: 08/30/18 19:45 STEVE DOTY MD Discharge Date: 09/01/18 - Discharge Diagnosis (1) Syncope Is this a current diagnosis for this admission?: Yes - Additional Information Resuscitation Status: Full Code Home Medications: Apixaban [Eliquis 5 mg Tablet] 5 mg PO BID 08/31/18 Cyanocobalamin (Vitamin B-12) [Vitamin B-12 Inj 1000 Mcg/1 ml Vial] 1,000 mcg IM Q7D 08/31/18 Finasteride [Proscar 5 mg Tablet] 5 mg PO DAILY 08/31/18 Iron Ps Complex/B12/Folic Acid [Ferrex 150 Forte Capsule] 2 each PO DAILY 08/31/18 Metoprolol Succinate [Toprol Xl 25 mg Tab.sr] 25 mg PO DAILY 08/31/18 Tramadol HCl/Acetaminophen [Tramadol-Acetaminophn 37.5-325] 1 each PO Q8HP PRN 08/31/18 Valsartan/Hydrochlorothiazide [Valsartan-Hctz 320-25 mg Tab] 1 each PO DAILY 08/31/18 History of Present Illness History of Present Illness: YELENA SANCHEZ is a 78 year old male, he was admitted for evaluation of syncope Hospital Course Hospital Course: He was admitted for evaluation and management of syncope, he was extensively evaluated for syncope no etiology was demonstrated, patient will be discharged home, he will be referred to clinical technician for further evaluation. I see him in the office last week when he came for evaluation of frequent fall, a 12- lead EKG was done in the office that demonstrated atrial flutter, he was supposed to see clinical technician outpatient for further evaluation. The twelve-lead EKG done in the hospital was sinus rhythm Physical Exam Vital Signs: Temp Pulse Resp BP Pulse Ox 97.9 F 56 L 20 112/62 100 09/01/18 19:58 09/01/18 19:58 09/01/18 19:58 09/01/18 19:58 09/01/18 19:58 Intake & Output 08/31/18 09/01/18 09/02/18 06:59 06:59 06:59 Intake Total 300 50 Output Total 400 350 Balance -400 -50 50 Weight 63.6 kg 63.6 kg General appearance: PRESENT: no acute distress, well-developed, well-nourished Head exam: PRESENT: atraumatic, normocephalic Eye exam: PRESENT: conjunctiva pink, EOMI, PERRLA Ear exam: PRESENT: normal external ear exam Mouth exam: PRESENT: moist, tongue midline Neck exam: PRESENT: full ROM Respiratory exam: PRESENT: clear to auscultation sariah Cardiovascular exam: PRESENT: RRR, +S1, +S2 Vascular exam: PRESENT: normal capillary refill GI/Abdominal exam: PRESENT: normal bowel sounds, soft Rectal exam: PRESENT: deferred Neurological exam: PRESENT: alert, awake, oriented to person, oriented to place, oriented to time, oriented to situation, CN II-XII grossly intact Psychiatric exam: PRESENT: appropriate affect, normal mood Skin exam: PRESENT: dry, intact, warm Results Laboratory Results: 09/01/18 04:34 08/31/18 03:50 09/01/18 04:34 WBC 4.9 RBC 4.60 Hgb 10.8 L Hct 34.6 L MCV 75 L MCH 23.4 L MCHC 31.1 L RDW 19.9 H Plt Count 146 L Seg Neutrophils % 68.4 Lymphocytes % 20.1 Monocytes % 7.1 Eosinophils % 3.8 Basophils % 0.6 Absolute Neutrophils 3.3 Absolute Lymphocytes 1.0 Absolute Monocytes 0.3 Absolute Eosinophils 0.2 Absolute Basophils 0.0 08/30/18 17:05 Clean Catch Midstream Urine Culture - Final Citrobacter Koseri 08/30/18 08/30/18 08/30/18 15:49 21:50 21:50 Creatine Kinase < 20 L CK-MB (CK-2) < 0.22 Troponin I < 0.012 < 0.012 08/31/18 08/31/18 08/31/18 03:50 03:50 09:49 Creatine Kinase < 20 L < 20 L CK-MB (CK-2) < 0.22 Troponin I < 0.012 08/31/18 09:49 Creatine Kinase CK-MB (CK-2) < 0.22 Troponin I < 0.012 Impressions: Chest X-Ray 08/30/18 16:09 IMPRESSION: NO ACUTE FINDINGS. Head CT 08/30/18 16:09 IMPRESSION: No hemorrhage. No midline shift. Areas of low density in the white matter most likely due to chronic micro-vascular ischemic change. No evidence for large vessel acute infarction.. Air-fluid levels and mucosal thickening in the left sphenoid sinus. EVIDENCE OF ACUTE STROKE: NO. Chest/Abdomen CTA 08/30/18 18:08 IMPRESSION: No acute findings. NO PULMONARY EMBOLI. Head MRI 08/30/18 18:48 IMPRESSION: ATROPHY AND CHRONIC MICRO-VASCULAR ISCHEMIC CHANGES. OTHERWISE UNREMARKABLE MRI OF THE BRAIN WITHOUT AND WITH INTRAVENOUS GADOLINIUM CONTRAST. Extensive sphenoid sinus disease. EVIDENCE OF ACUTE STROKE: NO. Brain MRI with MRA 08/30/18 19:46 IMPRESSION: NORMAL MRA OF THE [place]. Qualifiers - * PATIENT BEING DISCHARGED WITH ANY OF THE FOLLOWING DIAGNOSIS: No Acute Heart Failure Is this a Heart Failure Patient?: No
[2018-09-02] MEDS: PANTOPRAZOLE SODIUM 20 MG TABLET.DR PO SCH (05:07)
[2018-09-02 06:50] LABS: ABSOLUTE EOSINOPHILS # (AUTO) 0.3 10^3/uL (0.0-0.6); ABSOLUTE LYMPHOCYTES (AUTO) 1.1 10^3/uL (0.5-4.7); ABSOLUTE MONOCYTES (AUTO) 0.4 10^3/uL (0.1-1.4); ABSOLUTE NEUT (AUTO) 3.2 10^3/uL (1.7-8.2); BASOPHILS % (AUTO) 0.9 % (0-2); EOSINOPHILS % (AUTO) 5.2 % (0-6); HEMOGLOBIN 11.1 g/dL (13.5-17.0); LYMPHOCYTES % (AUTO) 21.1 % (13-45); MEAN CORPUSCULAR HEMOGLOBIN 23.3 pg (27.0-33.4); MEAN CORPUSCULAR HGB CONC 30.9 g/dL (32.0-36.0); MEAN CORPUSCULAR VOLUME 76 fl (80-97); MONOCYTES % (AUTO) 8.6 % (3-13); PLATELET COUNT 129 10^3/uL (150-450); RED BLOOD COUNT 4.77 10^6/uL (4.35-5.55); RED CELL DISTRIBUTION WIDTH 19.9 % (11.5-14.0); SEGMENTED NEUTROPHILS % (AUTO) 64.2 % (42-78); TOTAL CELLS COUNTED % (AUTO) 100 %
[2018-09-02] MEDS: IPRATROPIUM/ALBUTEROL 0.5-2.5 MG/3 ML AMPUL NEB SCH (07:25)
[2018-09-02 08:33] VITALS: BP 157/99
== END 2018-09-02 10:00 | disposition home or self-care (01) | DRG 312 ==
LOC: ER 15:41 → EH 19:45 → 3N 08-31 04:28
PROVIDERS: ADMIT Internal Medicine; ATTEND Internal Medicine
DX: R55 Syncope and collapse (principal); I73.9 Peripheral vascular disease, unspecified; J44.9 Chronic obstructive pulmonary disease, unspecified; I10 Essential (primary) hypertension; M19.90 Unspecified osteoarthritis, unspecified site; F17.210 Nicotine dependence, cigarettes, uncomplicated; Z79.899 Other long term (current) drug therapy; Z86.718 Personal history of other venous thrombosis and embolism; Z86.711 Personal history of pulmonary embolism; Z86.73 Personal history of transient ischemic attack (TIA), and cerebral infarction without residual deficits; Z91.81 History of falling; Z85.528 Personal history of other malignant neoplasm of kidney
CPT/HCPCS: 36415; 70450; 70544; 70553; 71045; 71275; 80053; 81001; 82550; 82553; 82803; 84484; 85025; 87040; 87086; 87088; 87186; 93005; 93010; 94640; 99285; A9576; J0696; J1650; J3490; J7060; J7620

== ENCOUNTER 2019-12-21 13:05 | Observation (INO) | payer MEDICARE ==
[2019-12-21] MEDS ORDERED: FERRIC CARBOXYMALTOSE 750 MG in NORMAL SALINE 250 ML IV ONE ×2 (15:30→18:00)
[2019-12-21 15:43] LABS: HEMATOCRIT 27.6 % (37.9-51.0); MEAN CORPUSCULAR HEMOGLOBIN 20.2 pg (27.0-33.4); MEAN CORPUSCULAR HGB CONC 28.4 g/dL (32.0-36.0); MEAN CORPUSCULAR VOLUME 71 fl (80-97); PLATELET COUNT 123 10^3/uL (150-450); RED BLOOD COUNT 3.86 10^6/uL (4.35-5.55); RED CELL DISTRIBUTION WIDTH 19.2 % (11.5-14.0); WHITE BLOOD COUNT 3.9 10^3/uL (4.0-10.5)
[2019-12-21 15:53] LABS: HEMOGLOBIN 7.8 g/dL (13.5-17.0)
[2019-12-21 15:54] LABS: ANION GAP 8 (5-19); BLOOD UREA NITROGEN 11 mg/dL (7-20); CARBON DIOXIDE 25 mmol/L (22-30); CHLORIDE 105 mmol/L (98-107); GLUCOSE 97 mg/dL (75-110)
--- NOTE | 2019-12-21 21:45 | PDOC H&P ---
History of Present Illness Admission Date/PCP: 12/21/19 13:05 STEVE DOTY MD History of Present Illness: YELENA SANCHEZ is a 79 year old male, Patient is well-known to me, he has a history of iron deficiency anemia that was evaluated extensively outpatient with endoscopy including EGD and colonoscopy no definitive etiology was isolated, he also underwent capsule endoscopy, he is on p.o. iron replacement therapy despite all that patient remains iron deficient with associated iron deficiency pancytopenia. Is admitted to be transfused and also to receive the first dose of IV Injectafer, he will receive second dose next week. Patient is symptomatic with hemoglobin below 8 Past Medical History Cardiac Medical History: Reports: DVT, Hypertension, Peripheral Vascular Disease, Pulmonary Embolism Pulmonary Medical History: Reports: Bronchitis, Chronic Obstructive Pulmonary Disease (COPD), Pneumonia, Respiratory Failure Malignancy Medical History: Reports: Renal (Kidney) Cancer Musculoskeltal Medical History: Reports: Arthritis Hematology: Reports: Anemia Past Surgical History Past Surgical History: Reports: Vascular Surgery Social History Smoking Status: Current Every Day Smoker Cigarettes Packs Per Day: 1 Electronic Cigarette use?: No Frequency of Alcohol Use: None Hx Recreational Drug Use: No Drugs: None Hx Prescription Drug Abuse: No - Advance Directive Resuscitation Status: Full Code Family History Family History: Reviewed & Not Pertinent Parental Family History Reviewed: Yes Children Family History Reviewed: Yes Sibling(s) Family History Reviewed.: Yes Medication/Allergy Home Medications: Apixaban [Eliquis 5 mg Tablet] 5 mg PO BID 08/31/18 Finasteride [Proscar 5 mg Tablet] 5 mg PO DAILY 08/31/18 Iron Ps Complex/B12/Folic Acid [Ferrex 150 Forte Capsule] 1 each PO DAILY 08/31/18 Metoprolol Succinate [Toprol Xl 25 mg Tab.sr] 25 mg PO DAILY 08/31/18 Atorvastatin Calcium [Lipitor 20 mg Tablet] 20 mg PO QHS 12/21/19 Allergies/Adverse Reactions: No Known Allergies Allergy (Verified 09/13/14 06:10) Review of Systems Constitutional: PRESENT: fatigue. ABSENT: chills, fever(s), headache(s), weight gain, weight loss Eyes: ABSENT: visual disturbances Ears: ABSENT: hearing changes Cardiovascular: PRESENT: dyspnea on exertion Respiratory: ABSENT: cough, hemoptysis Gastrointestinal: ABSENT: abdominal pain, constipation, diarrhea, hematemesis, hematochezia, nausea, vomiting Genitourinary: ABSENT: dysuria, hematuria Musculoskeletal: ABSENT: joint swelling Integumentary: ABSENT: rash, wounds Neurological: ABSENT: abnormal gait, abnormal speech, confusion, dizziness, focal weakness, syncope Psychiatric: ABSENT: anxiety, depression, homidical ideation, suicidal ideation Endocrine: ABSENT: cold intolerance, heat intolerance, menstrual abnormalities, polydipsia, polyuria Hematologic/Lymphatic: ABSENT: easy bleeding, easy bruising, lymphadenopathy Physical Exam Vital Signs: Temp Pulse Resp BP Pulse Ox 98 F 67 18 146/79 H 100 12/21/19 18:39 12/21/19 19:00 12/21/19 18:39 12/21/19 18:39 12/21/19 18:39 Intake & Output 12/20/19 12/21/19 12/22/19 06:59 06:59 06:59 Intake Total 565 Balance 565 Weight 66.678 kg General appearance: PRESENT: no acute distress, well-developed, well-nourished Head exam: PRESENT: atraumatic, normocephalic Eye exam: PRESENT: conjunctiva pink, EOMI, PERRLA Ear exam: PRESENT: normal external ear exam Mouth exam: PRESENT: moist, tongue midline Neck exam: PRESENT: full ROM Cardiovascular exam: PRESENT: RRR, +S1, +S2 Pulses: PRESENT: normal dorsalis pedis pul, +2 pedal pulses bilateral Vascular exam: PRESENT: normal capillary refill GI/Abdominal exam: PRESENT: normal bowel sounds, soft Rectal exam: PRESENT: deferred Neurological exam: PRESENT: alert, CN II-XII grossly intact Psychiatric exam: PRESENT: appropriate affect, normal mood Skin exam: PRESENT: dry, intact, warm. ABSENT: cyanosis, rash Results Laboratory Results: 12/21/19 14:50 12/21/19 14:50 12/21/19 12/21/19 12/21/19 14:50 14:50 14:50 WBC 3.9 L RBC 3.86 L Hgb 7.8 L Hct 27.6 L MCV 71 L MCH 20.2 L MCHC 28.4 L RDW 19.2 H Plt Count 123 L Sodium 137.9 Potassium 5.0 Chloride 105 Carbon Dioxide 25 Anion Gap 8 BUN 11 Creatinine 1.07 Est GFR ( Amer) > 60 Glucose 97 Calcium 10.0 Blood Type O POSITIVE Antibody Screen NEGATIVE Assessment & Plan - Diagnosis (1) Iron deficiency anemia Qualifiers: Iron deficiency anemia type: chronic blood loss Qualified Code(s): D50.0 - Iron deficiency anemia secondary to blood loss (chronic) Is this a current diagnosis for this admission?: Yes Plan: Patient will be transfused with red blood cells, he received the first dose of Injectafer iron infusion, he will receive the second dose a week from today (2) [facility] (current) use of anticoagulants Is this a current diagnosis for this admission?: Yes (3) Personal history of kidney cancer Is this a current diagnosis for this admission?: Yes - Time Time Spent: Greater than 70 Minutes Medications reviewed and adjusted accordingly: Yes Anticipated Discharge Disposition: Home, Self Care Anticipated Discharge Timeframe: within 24 hours
[2019-12-21] MEDS: ATORVASTATIN CALCIUM 20 MG TABLET PO SCH (22:37)
[2019-12-21] MEDS: FINASTERIDE 5 MG TABLET PO SCH (22:37)
[2019-12-21] MEDS: APIXABAN 5 MG TABLET PO SCH (22:37)
[2019-12-21] MEDS: METOPROLOL SUCCINATE 25 MG TAB.SR.24H PO SCH (22:37)
[2019-12-22 04:42] LABS: ABSOLUTE EOSINOPHILS # (AUTO) 0.1 10^3/uL (0.0-0.6); ABSOLUTE LYMPHOCYTES (AUTO) 0.9 10^3/uL (0.5-4.7); ABSOLUTE MONOCYTES (AUTO) 0.4 10^3/uL (0.1-1.4); ABSOLUTE NEUT (AUTO) 2.5 10^3/uL (1.7-8.2); EOSINOPHILS % (AUTO) 3.6 % (0-6); HEMATOCRIT 30.1 % (37.9-51.0); LYMPHOCYTES % (AUTO) 22.9 % (13-45); MEAN CORPUSCULAR HEMOGLOBIN 22.5 pg (27.0-33.4); MONOCYTES % (AUTO) 10.4 % (3-13); PLATELET COUNT 102 10^3/uL (150-450); RED BLOOD COUNT 4.01 10^6/uL (4.35-5.55); RED CELL DISTRIBUTION WIDTH 19.4 % (11.5-14.0); SEGMENTED NEUTROPHILS % (AUTO) 62.1 % (42-78); TOTAL CELLS COUNTED % (AUTO) 100 %; WHITE BLOOD COUNT 4.1 10^3/uL (4.0-10.5)
[2019-12-22 05:00] LABS: MEAN CORPUSCULAR VOLUME 75 fl (80-97)
[2019-12-22] MEDS ORDERED: NORMAL SALINE 250 ML IV PRN ×2 (08:08)
[2019-12-22] MEDS: FINASTERIDE 5 MG TABLET PO SCH (09:08)
[2019-12-22] MEDS: APIXABAN 5 MG TABLET PO SCH ×2 (09:08→17:31)
[2019-12-22] MEDS: METOPROLOL SUCCINATE 25 MG TAB.SR.24H PO SCH (09:08)
[2019-12-22] MEDS ORDERED: IRON POLYSACCHARIDES COMPLEX 150 MG CAPSULE PO SCH (10:00)
[2019-12-22 18:11] LABS: MEAN CORPUSCULAR VOLUME 77 fl (80-97); TOTAL CELLS COUNTED % (AUTO) 100 %
[2019-12-22 18:26] LABS: ABSOLUTE EOSINOPHILS # (AUTO) 0.1 10^3/uL (0.0-0.6); ABSOLUTE MONOCYTES (AUTO) 0.4 10^3/uL (0.1-1.4); ABSOLUTE NEUT (AUTO) 2.8 10^3/uL (1.7-8.2); EOSINOPHILS % (AUTO) 2.7 % (0-6); HEMATOCRIT 36.4 % (37.9-51.0); LYMPHOCYTES % (AUTO) 22.9 % (13-45); MEAN CORPUSCULAR HEMOGLOBIN 23.2 pg (27.0-33.4); MEAN CORPUSCULAR HGB CONC 30.3 g/dL (32.0-36.0); MONOCYTES % (AUTO) 9.9 % (3-13); PLATELET COUNT 103 10^3/uL (150-450); RED BLOOD COUNT 4.76 10^6/uL (4.35-5.55); RED CELL DISTRIBUTION WIDTH 19.9 % (11.5-14.0); SEGMENTED NEUTROPHILS % (AUTO) 63.5 % (42-78); WHITE BLOOD COUNT 4.5 10^3/uL (4.0-10.5)
--- NOTE | 2019-12-22 18:44 | PDOC DISCHARGE SUMMARY ---
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 Is this a current diagnosis for this admission?: Yes (3) Personal history of kidney cancer Is this a current diagnosis for this admission?: Yes - Additional Information Resuscitation Status: Full Code Referrals: STEVE DOTY MD [Primary Care Provider] - 12/29/19 10:45 am Home Medications: Apixaban [Eliquis 5 mg Tablet] 5 mg PO BID 08/31/18 Finasteride [Proscar 5 mg Tablet] 5 mg PO DAILY 08/31/18 Iron Ps Complex/B12/Folic Acid [Ferrex 150 Forte Capsule] 1 each PO DAILY 08/31/18 Metoprolol Succinate [Toprol Xl 25 mg Tab.sr] 25 mg PO DAILY 08/31/18 Atorvastatin Calcium [Lipitor 20 mg Tablet] 20 mg PO QHS 12/21/19 History of Present Illiness History of Present Illness: YELENA SANCHEZ is a 79 year old male, Patient is well-known to me, he has a history of iron deficiency anemia that was evaluated extensively outpatient with endoscopy including EGD and colonoscopy no definitive etiology was isolated, he also underwent capsule endoscopy, he is on p.o. iron replacement therapy despite all that patient remains iron deficient with associated iron deficiency pancytopenia. Is admitted to be transfused and also to receive the first dose of IV Injectafer, he will receive second dose next week. Patient is symptomatic with hemoglobin below 8 Hospital Course Hospital Course: Patient was transfused with 3 units of red blood cells, He also was transfused with Injectafer, he will receive the second dose next week, posttransfusion hemoglobin is 11 Physical Exam Vital Signs: Temp Pulse Resp BP Pulse Ox 97.7 F 57 L 18 152/77 H 100 12/22/19 16:00 12/22/19 16:00 12/22/19 13:37 12/22/19 16:00 12/22/19 13:37 Intake & Output 12/21/19 12/22/19 12/23/19 06:59 06:59 06:59 Intake Total 865 300 Balance 865 300 Weight 66.7 kg General appearance: PRESENT: no acute distress Eye exam: PRESENT: PERRLA Respiratory exam: PRESENT: clear to auscultation sariah Cardiovascular exam: PRESENT: +S1, +S2 GI/Abdominal exam: PRESENT: soft Neurological exam: PRESENT: alert, CN II-XII grossly intact Results Laboratory Results: WBC 4.5 10^3/uL (4.0-10.5) 12/22/19 17:51 RBC 4.76 10^6/uL (4.35-5.55) 12/22/19 17:51 Hgb 11.0 g/dL (13.5-17.0) L 12/22/19 17:51 Hct 36.4 % (37.9-51.0) L 12/22/19 17:51 MCV 77 fl (80-97) L 12/22/19 17:51 MCH 23.2 pg (27.0-33.4) L 12/22/19 17:51 MCHC 30.3 g/dL (32.0-36.0) L 12/22/19 17:51 RDW 19.9 % (11.5-14.0) H 12/22/19 17:51 Plt Count 103 10^3/uL (150-450) L 12/22/19 17:51 Lymph % (Auto) 22.9 % (13-45) 12/22/19 17:51 [place] % (Auto) 9.9 % (3-13) 12/22/19 17:51 Eos % (Auto) 2.7 % (0-6) 12/22/19 17:51 Baso % (Auto) 1.0 % (0-2) 12/22/19 17:51 Absolute Neuts (auto) 2.8 10^3/uL (1.7-8.2) 12/22/19 17:51 Absolute Lymphs (auto) 1.0 10^3/uL (0.5-4.7) 12/22/19 17:51 Absolute Monos (auto) 0.4 10^3/uL (0.1-1.4) 12/22/19 17:51 Absolute Eos (auto) 0.1 10^3/uL (0.0-0.6) 08/25/20 17:51 Absolute Basos (auto) 0.0 10^3/uL (0.0-0.2) 12/22/19 17:51 Seg Neutrophils % 63.5 % (42-78) 12/22/19 17:51 Sodium 137.9 mmol/L (137-145) 12/21/19 14:50 Potassium 5.0 mmol/L (3.6-5.0) 12/21/19 14:50 Chloride 105 mmol/L (98-107) 12/21/19 14:50 Carbon Dioxide 25 mmol/L (22-30) 12/21/19 14:50 Anion Gap 8 (5-19) 12/21/19 14:50 BUN 11 mg/dL (7-20) 12/21/19 14:50 Creatinine 1.07 mg/dL (0.52-1.25) 12/21/19 14:50 Est GFR ( Amer) > 60 (>60) 12/21/19 14:50 Est GFR (MDRD) Non-Af > 60 (>60) 12/21/19 14:50 Glucose 97 mg/dL (75-110) 12/21/19 14:50 Calcium 10.0 mg/dL (8.4-10.2) 12/21/19 14:50 Blood Type O POSITIVE 12/21/19 14:50 Blood Type Confirm O POSITIVE 12/21/19 14:50 Antibody Screen NEGATIVE 12/21/19 14:50 Crossmatch See Detail 12/21/19 14:50 Stroke Is this a Stroke Patient?: No Acute Heart Failure - Is this a Heart Failure Patient?: No
[2019-12-22] MEDS: ATORVASTATIN CALCIUM 20 MG TABLET PO SCH (21:47)
[2019-12-23 10:19] VITALS: BP 152/77
== END 2019-12-23 10:36 | disposition home or self-care (01) ==
LOC: 3W 13:05
PROVIDERS: ADMIT Internal Medicine; ATTEND Internal Medicine
DX: D50.0 Iron deficiency anemia secondary to blood loss (chronic) (principal); D61.818 Other pancytopenia; F17.210 Nicotine dependence, cigarettes, uncomplicated; I10 Essential (primary) hypertension; I73.9 Peripheral vascular disease, unspecified; M19.90 Unspecified osteoarthritis, unspecified site; Z79.01 Long term (current) use of anticoagulants; Z85.528 Personal history of other malignant neoplasm of kidney; Z79.899 Other long term (current) drug therapy; Z86.718 Personal history of other venous thrombosis and embolism; Z86.711 Personal history of pulmonary embolism
CPT/HCPCS: 86900; 86901; 36415 ×2; 36430; 86850; 85025; 85027; 80048; 86920; G0378 ×3; G0379; P9016 ×2; A9270 ×8; J7050; J1439

== ENCOUNTER 2019-12-29 11:11 | Outpatient (CLI) | payer MEDICARE ==
[~2019-12-29 11:11] MED LIST: FERRIC CARBOXYMALTOSE 750 MG in NORMAL SALINE 250 ML IV PRN
[2019-12-29] MEDS ORDERED: NORMAL SALINE 250 ML IV PRN (11:30)
[2019-12-29 11:31] VITALS: BP 146/88
== END 2019-12-29 12:15 | disposition home or self-care (01) ==
LOC: II 11:11 → 5TH 11:48 → II 12:15
PROVIDERS: ATTEND Internal Medicine
DX: D50.9 Iron deficiency anemia, unspecified (principal)
CPT/HCPCS: 96374; J7050; J1439